=== PATIENT | female | born 1965 | race Caucasian/White ===

== ENCOUNTER 2016-04-28 10:00 | Inpatient (IN) | payer OTHER ==
--- NOTE | 2016-06-10 17:21 | HP ---
HISTORY AND PHYSICAL: DATE OF ADMISSION/SURGERY: 06/16/16 DATE OF OFFICE VISIT: 06/10/16 SURGEON: Jessica Rangel MD PROCEDURE: Removal of hardware and right total hip arthroplasty. CHIEF COMPLAINT: Right hip pain. HISTORY OF PRESENT ILLNESS: Ms. Gerardo is a 50-year-old female with complaints of right hip pain secondary to very severe degenerative changes. She has failed conservative management and elected to proceed with hardware removal and conversion to a right total hip arthroplasty. The surgery scheduled for . PAST MEDICAL HISTORY: Denies. PAST SURGICAL HISTORY: Cannulated screws of the right hip, tubal ligation. CURRENT MEDICATIONS: 1. Gabapentin. 2. Vitamin A. 3. Vitamin B. 4. Folic acid. 5. Prozac. 6. Hydromorphone. 7. OxyContin. ALLERGIES: No known drug allergies. FAMILY HISTORY: Lung and bladder cancer and heart disease. SOCIAL HISTORY: She is a 50-year-old female. She lives with her boyfriend. She is disabled. She smokes half a pack a day for the last 20 years. She denies use of alcohol or illicit drugs. REVIEW OF SYSTEMS: A complete 14-point review of systems was reviewed with the patient. All was negative or noncontributory. She denies any previous anesthesia problems. Denies any history of blood clot. PHYSICAL EXAMINATION GENERAL: She is well developed, well nourished, in no acute distress. VITAL SIGNS: She stands 5 feet 6 inches tall, weighs 108 pounds, her blood pressure 130/84, heart rate is 96. HEENT: She is normocephalic, atraumatic. NECK: Supple. No palpable lymph nodes. Trachea is midline. PULMONARY: The lungs are clear to auscultation bilaterally. No wheezes, rhonchi, or rales. CARDIO: Regular rate and rhythm. Strong S1, S2. No murmurs, gallops, or rubs. ABDOMEN: Soft, nontender, and nondistended. NEUROLOGICAL: Alert and oriented x3. Cranial nerves II through XII are intact. MUSCULOSKELETAL: Right lower extremity: The skin is intact. She has very limited range of motion of the right hip. 2+ distal pulses. Her lower extremity muscle group strengths are intact at 5/5, and she has intact sensation. She walks with a very antalgic-type gait. ASSESSMENT AND PLAN: Ms. Gerardo is a 50-year-old female with complaints of severe right hip pain. She has elected to proceed with hardware removal with conversion to a right total hip. The surgery is scheduled for 06/16/[address] Rangel. She is currently on a prescription for Dilaudid and OxyContin, which is prescribed by Dr. Park, so no pain medication was sent at today's visit. Coumadin and Colace were both sent to her pharmacy and she was told not to take these medications prior to surgery. She will follow up with Dr. Rangel 2 weeks after the surgery. ANETA GROVE [id number]/CPS #: [id number] MTDD
[2016-06-16] MEDS ORDERED: Famotidine IV* 10 MG/ML 2 ML (20 mg) IV ONE (06:00)
[2016-06-16] MEDS ORDERED: Gabapentin CAP(*) 300 MG PO ONE (06:00)
[2016-06-16] MEDS ORDERED: Buffered Lidocaine 1% SYR 3ML* 3 ML/SYR SYRINGE INTRADERM ONE (06:00)
[2016-06-16] MEDS ORDERED: Famotidine IV* 10 MG/ML 2 ML (20 mg) ONE (11:42)
[2016-06-16] MEDS ORDERED: ceFAZolin 2 GM PREMIX (*) 2 GM/50 ML BAG IVPB ONE (11:42)
[2016-06-16] MEDS ORDERED: Gabapentin CAP(*) 300 MG ONE ×2 (11:42→19:55)
[2016-06-16] MEDS ORDERED: Buffered Lidocaine 1% SYR 3ML* 3 ML/SYR SYRINGE ONE (11:43)
[2016-06-16] MEDS ORDERED: Ketorolac INJ* 30 MG/ML 1 ML VIAL ONE (12:19)
[2016-06-16] MEDS ORDERED: Propofol* 10 MG/ML 20 ML BTL IV PUSH ONE ×2 (12:19→16:41)
[2016-06-16] MEDS ORDERED: Dexamethasone IV* 4 MG/ML 1 ML (4 MG) ONE (12:19)
[2016-06-16] MEDS ORDERED: Lidocaine 2% MPF* 2 ML VIAL ONE (12:19)
[2016-06-16] MEDS ORDERED: Ondansetron INJ* 2 MG/ML VIAL ONE (12:19)
[2016-06-16] MEDS ORDERED: fentaNYL* 50 MCG/ML 2 ML VIAL (100 MCG VIAL) ONE ×3 (12:19→15:31)
[2016-06-16] MEDS ORDERED: DiMENhydriNATE IV* 50 MG/ML VIAL ONE (12:19)
[2016-06-16] MEDS ORDERED: Midazolam* 1 MG/ML 5 ML VIAL (5 MG) ONE (12:19)
[2016-06-16] MEDS ORDERED: Atracurium* 10 MG/ML 10 ML VIAL ONE (12:23)
[2016-06-16] MEDS ORDERED: Levalbuterol 0.63MG/3ML NEB INH ONE (13:23)
[2016-06-16] MEDS ORDERED: Levalbuterol 1.25MG/0.5ML NEB ONE (13:24)
[2016-06-16] MEDS ORDERED: Bupivacaine 0.5% SDV PF* 30 ML VIAL ONE (13:45)
[2016-06-16] MEDS ORDERED: KETAMINE HCL* 50 MG/ML 10 ML VIAL ONE (15:01)
[2016-06-16] MEDS ORDERED: diPHENhydraMINE IV* 50 MG/ML 1 ml VIAL (BENADRYL) IV PRN (15:24)
[2016-06-16] MEDS ORDERED: Bisacodyl SUPP* 10 MG SUPP PR PRN (15:24)
[2016-06-16] MEDS ORDERED: Ondansetron INJ* 2 MG/ML VIAL IV PRN (15:24)
[2016-06-16] MEDS ORDERED: Polyethylene Glycol 3350* 17 GM PACKET PO PRN (15:24)
[2016-06-16] MEDS ORDERED: Acetaminophen TAB* 325 MG PO PRN (15:24)
[2016-06-16] MEDS ORDERED: Morphine INJ* 2 MG/ML 1 ML CARPUJECT IV PRN (15:24)
[2016-06-16] MEDS ORDERED: Magnesium Hydroxide LIQ* 30 ML UDC PO PRN (15:24)
[2016-06-16] MEDS ORDERED: Ondansetron TAB* 4 MG PO PRN (15:24)
[2016-06-16] MEDS ORDERED: Levalbuterol 0.63MG/3ML NEB INH PRN (15:53)
[2016-06-16] MEDS ORDERED: oxyCODONE/Acetamin 5/325 MG* TAB PO PRN (15:53)
[2016-06-16] MEDS ORDERED: DiMENhydriNATE IV* 50 MG/ML VIAL IV PUSH PRN (15:53)
[2016-06-16] MEDS ORDERED: HYDROmorphone INJ* 1 MG/ML CARPUJECT SYRINGE ONE ×2 (17:30→18:07)
[2016-06-16] MEDS ORDERED: oxyCODONE/Acetamin 5/325 MG* TAB ONE (18:07)
[2016-06-16] MEDS: HYDROmorphone INJ* 1 MG/ML CARPUJECT SYRINGE IV PRN ×5 (18:10→18:44)
[2016-06-16] MEDS: oxyCODONE/Acetamin 5/325 MG* TAB PO PRN (18:14)
--- NOTE | 2016-06-16 18:54 | RAD ---
INDICATION: Right total hip arthroplasty revision COMPARISON: Preoperative x-ray dated June 10, 2016 TECHNIQUE: 3 views of the right hip were obtained. FINDINGS: There is been interval placement of a right total hip prosthesis including a stabilizing metallic hardware along the lateral aspect of the proximal right femur and cerclage wires. The metallic hardware appears anatomically aligned in the AP and lateral views. Remaining visualized bones are intact. IMPRESSION: Anatomic alignment of right hip prosthesis as described above.
--- NOTE | 2016-06-16 18:57 | RAD ---
INDICATION: Intraoperative x-ray acquired during right total hip arthroplasty revision TECHNIQUE: An intraoperative AP view of the pelvis was obtained. FINDINGS: The visualized portions of the right hip prosthesis include the acetabular cup, the femoral shaft, a metal device along the lateral aspect of the proximal femur and cerclage wires. No prostatic femoral head is observed in this image.. IMPRESSION: Intraoperative x-ray as described above.
--- NOTE | 2016-06-16 19:43 | RAD ---
INDICATION: Right hip replacement TECHNIQUE: Single AP intraoperative view of the right hip acquired. FINDINGS: A single AP view acquired during right hip arthroplasty revision includes the acetabular cup. There is no femoral component aside from a lateral metallic device and one cerclage wire. IMPRESSION: Intraoperative x-ray as above.
[2016-06-16] MEDS ORDERED: Morphine INJ* 2 MG/ML 1 ML CARPUJECT ONE (19:55)
[2016-06-16] MEDS: Gabapentin CAP(*) 300 MG PO SCH (19:57)
[2016-06-16] MEDS ORDERED: Warfarin TAB(*) 6 MG PO ONE (21:00)
[2016-06-16] MEDS: Docusate CAP* 100 MG PO SCH (21:29)
[2016-06-16] MEDS: ceFAZolin 1 GM in Dextrose (*) 1 GM/50 ML BAG IVPB SCH (21:30)
--- NOTE | 2016-06-16 22:28 | CONS ---
[facility] MEDICINE CONSULTATION REPORT: DATE OF CONSULT: 06/16/16 ATTENDING PHYSICIAN: Dr. Jessica Rangel. CONSULTING PHYSICIAN: Dr. Sandeep Byrne (dictation provided by Bev Scott NP ) REASON FOR CONSULT: Medical comanagement in the patient admitted for right total hip arthroplasty. HISTORY OF PRESENT ILLNESS: Ms. Gerardo is a 50-year-old female with ongoing pain due to severe degenerative changes in her right hip who failed conservative management and has elected for a right total hip arthroplasty. Please see the dictated H and P from Dr. Rangel for further details. The patient has no further known medical history. PAST MEDICAL HISTORY: 1. COPD. 2. History of polyneuropathy. 3. Hx alcohol abuse. 4. Hx tobacco abuse. 5. Chronic electrolyte abnormalities. PAST SURGICAL HISTORY: Cannulated screws of the right hip and a tubal ligation. CURRENT MEDICATIONS: 1. Hydromorphone 8 mg p.o. q.4 hours p.r.n. 2. Vitamin B 108 mg p.o. daily. 3. Multivitamin 1 tab daily. 4. Oxycodone SR 20 mg p.o. q.12 hours. 5. Albuterol sulfate 2 puffs inhaled q.4 hours p.r.n. 6. Folic acid 1 mg daily. 7. Gabapentin 300 mg p.o. t.i.d. 8. Omeprazole 40 mg p.o. q.a.m. ALLERGIES: No known drug allergies. FAMILY HISTORY: Reviewed and noncontributory. SOCIAL HISTORY: No report of alcohol or drug use. The patient states that she is an ongoing smoker, but she quit today. REVIEW OF SYSTEMS: A 14-point review of systems was completed with Ms. Gerardo and all those mentioned above were negative. PHYSICAL EXAMINATION: Vital Signs: Temperature 98.2, heart rate 84, respiratory rate 14, O2 saturation 99% on 3 L nasal cannula, blood pressure 171/ 82. General: Ms. Gerardo is lying on the bed. She is in no acute distress, but she ___. Neuro: She is alert and oriented x3. She moves all extremities equally. There is no facial asymmetry or focal weakness. Extraocular movements are intact. Heart: S1, S2. No murmur, rub, gallop and regular. Lungs: Clear to auscultation bilaterally with no accessory muscle use and good aeration. Abdomen: Soft and nontender with bowel sounds positive x4. Extremities: No cyanosis or edema. Skin: Intact. DIAGNOSTIC STUDIES/LAB DATA: On 06/10/16, WBC 7.0, hemoglobin 14.8, hematocrit 45, and platelet count 257. Sodium 134, potassium 4.4, chloride 98, serum bicarbonate 34, BUN 11, creatinine 0.57, glucose 83, hemoglobin A1c 5.0. ASSESSMENT: Ms. Gerardo is a 50-year-old female with no other significant past medical history who presents to the hospital today for right total hip arthroplasty with Dr. Jessica Rangel. Our recommendations are as follows: 1. Right total hip arthroplasty, postop day #0. Management will be per orthopedic services. The patient will have PT and OT. She will have pain management with a bowel regimen and she will have H and H monitored. I do note that the patient is on significant amount of chronic daily narcotics. Hopefully , the surgery will decrease the need for that, but I do anticipate to her to have a high tolerance and need for stronger doses of narcotics than for typical patient. I have adjusted the region somewhat tonight. We will monitor her for good pain control. 2. COPD: Patient reports stopping smoking as of today. I strongly encouraged her in her efforts. Plan to also encourage IS and mobility. 3. Hx alcohol abuse: Patient denies drinking currently. Monitor for signs of withdrawal and treat as needed. 4. DVT prophylaxis with warfarin and Lovenox per Ortho. 5. Code status. Full code. 6. Disposition. Per Ortho. TIME SPENT: Approximately 30 minutes were spent in the consultation of this patient. More than half that time was spent with her at the bedside, reviewing the events leading up to this hospitalization, performing the physical examination, and reviewing the plan of care. BEV SCOTT, NESTOR [id number]/CPS #: [id number] ANGLE
[2016-06-17] MEDS: Morphine INJ* 2 MG/ML 1 ML CARPUJECT IV PRN ×3 (00:15→07:30)
[2016-06-17] MEDS: oxyCODONE/Acetamin 5/325 MG* TAB PO PRN ×4 (02:59→17:34)
--- NOTE | 2016-06-17 03:34 | OP ---
DATE OF OPERATION: 06/16/16 - ROOM #340 DATE OF : 67 SURGEON: Jessica Rangel MD INFORMATION DIRECTOR: ANETA Lau ANESTHESIOLOGIST: Dr. Kang. ANESTHESIA: General. 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 OPERATIVE PROCEDURE: Conversion of prior hip ORIF to a right total hip arthroplasty, removal of cannulated screws. COMPLICATIONS: None. ESTIMATED BLOOD LOSS: 300 cc. SPECIMEN: Femoral head and acetabulum reaming, sent to pathology. Multiple culture swabs intraoperatively. HARDWARE USED: This was uncemented Wilmer total hip hardware. For the cup, a size 48D Trident Hemispherical Acetabular Shell with 130 mm cancellous bone screw. A Trident X3 32D 10-degree polyethylene insert was used. For the femoral stem, a size 2.5 Accolade TMZF with a 127-degree neck and Biolox Delta Ceramic V40 femoral head, 32, +0. A [employer] trochanteric practice assistant plate was also used in size medium, length 150 mm. Four [employer] cables were used for this trochanteric practice assistant plate. These were 2.0 cables. BRIEF HISTORY/INDICATIONS: Ms. Gerardo is a 50-year-old female who had a fall with femoral neck fracture in 2007. This was treated by Dr. Aggarwal with cannulated screw fixation. Over the next 8 years, she went on to have hardware failure and protrusion of the screws. The patient presented to my clinic several months ago with severe pain and inability to ambulate. Radiographs showed protrusion of the screws into the femoral head with severe posttraumatic osteoarthritis of the right hip joint. She was medically optimized for surgery and very much wished to proceed with conversion of the prior hip ORIF to a right total hip arthroplasty. Informed consent was obtained from the patient. She understood the risks of the procedure included but were not limited to bleeding, infection, damage to nearby structures, continued pain, need for surgery, nerve palsy, leg length discrepancy, dislocation, hardware failure or loosening, intraoperative fractures, stroke, heart attack, blood clot, and . She wished to proceed. INTRAOPERATIVE FINDINGS: Intraoperatively, the patient's femoral head was completely deformed and collapsed. She had protruded cannulated screws. These screws are loosened and backed up. She was noted to have osteopenia throughout the case. She did have severe end-stage arthritis of the acetabulum as well. DESCRIPTION OF PROCEDURE: Ms. Gerardo was identified in the preanesthesia unit. Her right lower extremity was marked as the correct operative site. Informed consent was signed and placed in the chart. The patient was taken to the operating room and placed under general anesthesia. A Finch catheter was placed. She was placed in the left lateral decubitus position on the PEG board. All bony prominences were well padded. Right lower extremity was prepped and draped in the usual sterile fashion. Preop time-out was made to correctly identify the patient side and site. Appropriate perioperative antibiotics were given within 1 hour of incision. A 15 cm posterior hip incision was made with a 10 blade and carried down to the lateral fascial layer. Electrocautery was used to dissect through subcutaneous fat. Lateral fascial layer was then incised in the line with the skin incision and a Charnley retractor was placed. Piriformis and conjoined tendons were identified and elevated off posterolateral femur using electrocautery and tagged with two #5 Ethibonds. Next, the electrocautery was used to make a standard posterolateral capsular flap and this was also tagged with two #5 Ethibonds. Standard protocol aerobic and anaerobic cultures were obtained of the joint fluid. Joint fluid was cleared and did not appear to be infected. The cannulated screws were visible through the femoral head. These screws were loosened and backed up. They were visible along the posterolateral proximal femur. The hip was carefully dislocated. Cannulated screws were carefully removed. There were 3 washers as well which were carefully removed. Oscillating saw was used to make the appropriate femoral neck cut. Femoral head was collapsed and deformed. This was sent to pathology. A curette was used to remove any fibrous debris from the screw tracks. Around the 3 cannulated screw holes, there was no mobile bone or obvious fracture of the greater trochanter. The femur was carefully retracted anteriorly. After appropriate placement of retractor, the acetabulum was easily visualized. There was superolateral wear from the screws. A long-handle knife was used to remove any remaining labrum from the acetabular rim. Electrocautery was used to remove soft tissue from the cotyloid notch. The acetabulum was sequentially reamed up to a size 47. Good bleeding bone bed was obtained. Osteopenia was noted. A size 48 Trident Multi-Hole Shell was chosen. This was impacted into the acetabulum without difficulty. A size 30 screw was placed in the superoposterior quadrant for extra stability. A 32D 10-degree Trident X3 liner was chosen as the polyethylene insert. This was impacted into the acetabulum and noted to be stable. The stability of the line was checked and rechecked. Next, attention was turned to preparation of the femur. A canal finder was used to enter the proximal femur. The proximal intramedullary femoral bone was noted to be sclerotic due to the prior cannulated screw holes. I felt that the greater troch was at high risk of fracture during the broaching of the canal. Therefore, the decision was made place a [employer] trochanteric practice assistant plate. A medium length 150 was chosen. This was applied to the lateral greater trochanter and lateral femur. Four 2-0 cables were used to secure the trochanteric practice assistant plate to the greater trochanter and lateral femur. A stable construct was obtained. C-arm AP and lateral views were used to ensure proper placement of the plate and cables. Next, attention was turned to preparation of the proximal femur. The canal was sequentially broached up to a size 2.5. A 127-degree neck trial was chosen. A 32, +0 femoral head trial was chosen. The hip was reduced and taken through a range of motion. Hip was noted to be stable in all positions. Anterior capsule was tight and electrocautery was used to conservatively release this. The hip was carefully was dislocated. All trials were carefully removed. Final implant was an Accolade TMZF size 2.5 with 127-degree neck. A 32, +0 Biolox Delta femoral head was chosen as well. Femoral stem was impacted into the femoral canal without any difficulty. It was stable with appropriate anteversion. There were no visible periprosthetic fractures. Prior acetabular reamings were used to bone graft the cannulated screw holes. The Biolox Delta femoral head was impacted onto the femoral neck without difficulty. Hip was reduced and taken through a range of motion. The hip was stable in all positions. There was good soft tissue tension. Hip was copiously irrigated at this point. Previously tagged capsule and tendons were reapproximated to the postero-lateral femur through 2 trochanteric drill holes. The hip was copiously irrigated with sterile saline. The lateral fascia and proximal IT band was reapproximated using #5 Ethibond. Next, the lateral fascia layer was reapproximated using interrupted #1 Vicryls. The rest of the incision was closed in a layered fashion using 0 and 2-0 Vicryls. Skin was closed using running 3-0 Monocryl and Dermabond. Sterile Adaptic, 4x4s, and paper tape were used to cover the incision. The patient's anesthesia was reversed without difficulty. She was taken to the PACU in stable condition. Intended weightbearing will be weightbearing as tolerated. Intended DVT prophylaxis will be Coumadin with a Lovenox bridge. [id number]/[facility] #: [id number] ANGLE
[2016-06-17] MEDS: ceFAZolin 1 GM in Dextrose (*) 1 GM/50 ML BAG IVPB SCH ×2 (05:29→13:15)
[2016-06-17 06:20] LABS: Hematocrit 33 % (35-47)
[2016-06-17 06:45] LABS: BUN/Creatinine Ratio 20.4 (8-20); Calcium 8.1 mg/dL (8.6-10.3); EGFR African American 172.6 (>60); EGFR Non-African American 134.2 (>60)
[2016-06-17] MEDS: Omeprazole CAP* 20 MG PO SCH (07:29)
[2016-06-17] MEDS: Gabapentin CAP(*) 300 MG PO SCH ×3 (07:29→20:05)
[2016-06-17] MEDS: Docusate CAP* 100 MG PO SCH ×2 (07:30→20:05)
--- NOTE | 2016-06-17 07:37 | PN ---
Progress Note - Progress Note SOAP: Subjective: Pt. reports severe pain. Objective: RLE - dressing c/d/i, thigh soft. distally +df/pf, 2+ dp pulse. baseline sens lt. Vital Signs: Temp Pulse Resp BP Pulse Ox 98.1 F 87 18 108/59 94 06/17/16 03:25 06/17/16 03:25 06/17/16 07:30 06/17/16 03:25 06/17/16 03:25 Laboratory Results - last 24 hr 06/16/16 06/17/16 06/17/16 12:21 06:03 06:07 Hgb 11.0 L Hct 33 L INR (Anticoag Therapy) Sodium 137 Potassium 4.0 Chloride 103 Carbon Dioxide 28 Anion Gap 6 BUN 10 Creatinine 0.49 L Est GFR ( Amer) 172.6 Est GFR (Non-Af Amer) 134.2 BUN/Creatinine Ratio 20.4 H Glucose 161 H Calcium 8.1 L Blood Type A Positive Antibody Screen Negative 06/17/16 06:07 Hgb Hct INR (Anticoag Therapy) 1.02 Sodium Potassium Chloride Carbon Dioxide Anion Gap BUN Creatinine Est GFR ( Amer) Est GFR (Non-Af Amer) BUN/Creatinine Ratio Glucose Calcium Blood Type Antibody Screen Assessment: 50 yo F pod 1 s/p conversion to RTHA with trochanteric radiological defense officer plate. Plan: PT/OT - wbat with strict post. hip precautions - pt. had signifant shortened leg with flexion contracture preop - may not be able to fully extend at hip. remove porter may restart oxycontin oobtc with meals heel booties will discuss COPD and PMH with Bev Scott.
[2016-06-17] MEDS ORDERED: Pneumococcal *Vac Polyvalent 0.5 ML VIAL IM ONE (09:00)
[2016-06-17] MEDS ORDERED: Influenza VAC *QUAD* 2016-17* 0.5 ML SYRINGE IM ONE (09:00)
[2016-06-17] MEDS: oxyCODONE SR TAB(*) 10 MG TAB.SR PO SCH ×2 (09:01→20:06)
[2016-06-17] MEDS: Folic Acid TAB* 1 MG PO SCH (09:01)
[2016-06-17] MEDS: Albuterol HFA INHALER* 8 gm MDI INH PRN (12:55)
[2016-06-17] MEDS: oxyCODONE TAB* 5 MG TAB PO PRN ×2 (14:36→23:02)
[2016-06-17] MEDS ORDERED: Enoxaparin(*) 30 MG/0.3 ML SYR SUBCUT SCH (16:00)
[2016-06-17] MEDS ORDERED: Warfarin TAB(*) 4 MG PO ONE (17:00)
--- NOTE | 2016-06-17 17:34 | PN ---
Subjective Date of Service: 06/17/16 Interval History: This is a 50 yo female with a h/o mild COPD who is POD #1 s/p R CHALO by Dr Rangel. Patient has had some difficulty with pain management. Denies CP or SOB. Denies abdominal pain, n/v. Objective Active Medications: Acetaminophen (Tylenol Tab*) 650 mg PO Q4H PRN PRN Reason: PAIN OR TEMPERATURE Albuterol (Ventolin Hfa Inhaler*) 2 puff INH Q4HR PRN PRN Reason: SHORTNESS OF BREATH Last Admin: 06/17/16 12:55 Dose: 2 puff Bisacodyl (Dulcolax Supp*) 10 mg MD DAILY PRN PRN Reason: constipation Diphenhydramine HCl (Benadryl Iv*) 12.5 mg IV Q6H PRN PRN Reason: PRURITIS Docusate Sodium (Colace Cap*) 100 mg PO BID [facility] Last Admin: 06/17/16 07:30 Dose: 100 mg Enoxaparin Sodium (Lovenox(*)) 30 mg SUBCUT Q24H [facility] Last Admin: 06/17/16 16:07 Dose: 30 mg Folic Acid (Folvite Tab*) 1 mg PO 1000 [facility] Last Admin: 06/17/16 09:01 Dose: 1 mg Gabapentin (Neurontin Cap(*)) 300 mg PO TID [facility] Last Admin: 06/17/16 13:10 Dose: 300 mg Lactated Ringer's (Lactated Ringers 1000 Ml Bag*) 1,000 mls @ 100 mls/hr IV PER RATE [facility] Last Admin: 06/17/16 07:35 Dose: 100 mls/hr Lactulose (Lactulose*) 30 ml PO Q6H PRN PRN Reason: constipation Magnesium Hydroxide (Milk Of Magnesia Liq*) 30 ml PO Q6H PRN PRN Reason: constipation Morphine Sulfate (Morphine Inj (Syringe)*) 4 mg IV Q2H PRN PRN Reason: PAIN Last Admin: 06/17/16 07:30 Dose: 4 mg Omeprazole (Prilosec Cap*) 40 mg PO QAM [facility] Last Admin: 06/17/16 07:29 Dose: 40 mg Ondansetron HCl (Zofran Inj*) 4 mg IV Q6H PRN PRN Reason: nausea Ondansetron HCl (Zofran Tab*) 4 mg PO Q6H PRN PRN Reason: NAUSEA Oxycodone HCl (Roxycodone Tab*) 10 mg PO Q4H PRN PRN Reason: SEVERE PAIN Last Admin: 06/17/16 14:36 Dose: 10 mg Oxycodone HCl (Oxycontin(*)) 10 mg PO BID [facility] Last Admin: 06/17/16 09:01 Dose: 10 mg Oxycodone/Acetaminophen (Percocet 5/325 Tab*) 1 tab PO Q3H PRN PRN Reason: PAIN - MODERATE Oxycodone/Acetaminophen (Percocet 5/325 Tab*) 2 tab PO Q3H PRN PRN Reason: PAIN - MODERATE Last Admin: 06/17/16 10:42 Dose: 2 tab Pharmacy Profile Note (Coumadin Daily Reminder*) 1 note FOLLOW UP 1700 [facility] Polyethylene Glycol/Electrolytes (Miralax*) 17 gm PO DAILY PRN PRN Reason: Constipation Vital Signs: Temp Pulse Resp BP Pulse Ox 98.2 F 83 17 95/60 91 06/17/16 16:24 06/17/16 16:24 06/17/16 16:34 06/17/16 16:24 06/17/16 16:24 Oxygen Devices in Use Now: None Appearance: Chronically ill appearing female who appears older than stated age sitting at the side of her bed in NAD Neck: NL Appearance and Movements; NL JVP Respiratory: Symmetrical Chest Expansion and Respiratory Effort, - - few inspiratory wheezes appreciated, no crackles or rhonchi Cardiovascular: NL Sounds; No Murmurs; No JVD, RRR Abdominal: NL Sounds; No Tenderness; No Distention Extremities: No Edema Skin: No Rash or Ulcers Neurological: Alert and Oriented x 3 Result Diagrams: 06/17/16 06:07 06/17/16 06:03 Microbiology and Other Data: Microbiology 06/16/16 15:24 Anaerobic Culture - Preliminary Wound - Hip Right No Growth Day 1 Skin and Soft Tissue MRSA/MSSA (PCR - Final Mrsa Negative S.aureus Negative Gram Stain - Final Wound Culture - Preliminary No Growth Day 1 Assess/Plan/Problems-Billing Assessment: This a 50 yo female with mild COPD and chronic pain who is POD #1 s/p R CHALO by Dr Rangel. Hospitalists are co-managing. - Patient Problems (1) History of total right hip arthroplasty Comment: POD #1 Management per ortho DVT prophylaxis and discharge planning per ortho (2) COPD (chronic obstructive pulmonary disease) Comment: Mild wheeze on exam, but no hypoxia or complaints of dyspnea Cont prn albuterol and incentive spirometer (3) Chronic pain Comment: Currently receiving prn oxycodone, would like benefit from restarting her SR Oxycontin for improved pain control (4) Polyneuropathy Comment: History of possible GB Perhaps related to nutrition (5) Tobacco abuse Comment: Patient is motivated to quit Denies nicotine cravings Status and Disposition: Disposition per ortho. No acute medical concerns
[2016-06-18] MEDS: oxyCODONE/Acetamin 5/325 MG* TAB PO PRN ×4 (02:56→23:31)
[2016-06-18] MEDS: Morphine INJ* 2 MG/ML 1 ML CARPUJECT IV PRN (05:38)
[2016-06-18] MEDS: Albuterol HFA INHALER* 8 gm MDI INH PRN ×2 (05:46→10:09)
[2016-06-18 06:34] LABS: Hematocrit 29 % (35-47); Hemoglobin 9.8 g/dl (12.0-16.0)
[2016-06-18] MEDS: Gabapentin CAP(*) 300 MG PO SCH ×3 (07:47→21:06)
[2016-06-18] MEDS: Docusate CAP* 100 MG PO SCH ×2 (07:47→21:07)
[2016-06-18] MEDS: oxyCODONE SR TAB(*) 10 MG TAB.SR PO SCH ×2 (07:48→08:57)
[2016-06-18] MEDS: Omeprazole CAP* 20 MG PO SCH (07:48)
[2016-06-18] MEDS: oxyCODONE SR TAB(*) 20 MG TAB.SR PO SCH ×2 (08:59→21:07)
[2016-06-18] MEDS ORDERED: oxyCODONE SR TAB(*) 10 MG TAB.SR PO ONE (09:00)
[2016-06-18] MEDS: Folic Acid TAB* 1 MG PO SCH (10:08)
[2016-06-18] MEDS ORDERED: Spiriva Inhaler DEVICE* 1 EACH DEVICE INH ONE (14:00)
--- NOTE | 2016-06-18 14:01 | PN ---
Progress Note - Progress Note SOAP: Subjective: Pt. is c/o uncontrolled pain and some burning in R foot. Objective: RLE - dressing changed, inc c/d/i. distally + df/pf, sens baseline, 2+dp pulse. Vital Signs: Temp Pulse Resp BP Pulse Ox 98.8 F 95 18 90/51 92 06/18/16 12:02 06/18/16 12:02 06/18/16 13:49 06/18/16 12:02 06/18/16 12:02 Laboratory Results - last 24 hr 06/18/16 06/18/16 05:53 05:53 Hgb 9.8 L Hct 29 L INR (Anticoag Therapy) 2.00 H Assessment: 50 yo F pod 2 s/p conversion prior R hip orif to RTHA Plan: oxycontin increased to 20 mg bid oobtc with meals wbat rle - pt/ot post hip precautions plan d/c to home tomorrow
[2016-06-18] MEDS: Tiotropium CAP.INH* CAP.INH/18 MCG (USE ORDER SET !) INH SCH (14:13)
[2016-06-18] MEDS ORDERED: Warfarin TAB(*) 2 MG PO ONE (17:00)
--- NOTE | 2016-06-18 19:01 | PN ---
Subjective Date of Service: 06/18/16 Interval History: Patient is still struggling with pain control, but seems improved. She was noted to be hypoxic with ambulation today. Patient denies significant dyspnea despite this Objective Active Medications: Acetaminophen (Tylenol Tab*) 650 mg PO Q4H PRN PRN Reason: PAIN OR TEMPERATURE Albuterol (Ventolin Hfa Inhaler*) 2 puff INH Q4HR PRN PRN Reason: SHORTNESS OF BREATH Last Admin: 06/18/16 10:09 Dose: 2 puff Bisacodyl (Dulcolax Supp*) 10 mg [place] DAILY PRN PRN Reason: constipation Diphenhydramine HCl (Benadryl Iv*) 12.5 mg IV Q6H PRN PRN Reason: PRURITIS Docusate Sodium (Colace Cap*) 100 mg PO BID [facility] Last Admin: 06/18/16 07:47 Dose: 100 mg Folic Acid (Folvite Tab*) 1 mg PO 1000 [facility] Last Admin: 06/18/16 10:08 Dose: 1 mg Gabapentin (Neurontin Cap(*)) 300 mg PO TID [facility] Last Admin: 06/18/16 13:49 Dose: 300 mg Lactated Ringer's (Lactated Ringers 1000 Ml Bag*) 1,000 mls @ 200 mls/hr IV PER RATE [facility] Stop: 06/18/16 18:59 Last Admin: 06/18/16 13:56 Dose: 200 mls/hr Lactulose (Lactulose*) 30 ml PO Q6H PRN PRN Reason: constipation Magnesium Hydroxide (Milk Of Magnesia Liq*) 30 ml PO Q6H PRN PRN Reason: constipation Last Admin: 06/17/16 20:11 Dose: 30 ml Mometasone Furoate/Formoterol Fumar (Dulera 200/5 Mdi*) 2 puff INH BID [facility] Morphine Sulfate (Morphine Inj (Syringe)*) 4 mg IV Q2H PRN PRN Reason: PAIN Last Admin: 06/18/16 05:38 Dose: 4 mg Omeprazole (Prilosec Cap*) 40 mg PO QAM [facility] Last Admin: 06/18/16 07:48 Dose: 40 mg Ondansetron HCl (Zofran Inj*) 4 mg IV Q6H PRN PRN Reason: nausea Ondansetron HCl (Zofran Tab*) 4 mg PO Q6H PRN PRN Reason: NAUSEA Oxycodone HCl (Roxycodone Tab*) 10 mg PO Q4H PRN PRN Reason: SEVERE PAIN Last Admin: 06/17/16 23:02 Dose: 10 mg Oxycodone HCl (Oxycontin(*)) 20 mg PO BID [facility] Last Admin: 06/18/16 08:59 Dose: Not Given Oxycodone/Acetaminophen (Percocet 5/325 Tab*) 1 tab PO Q3H PRN PRN Reason: PAIN - MODERATE Last Admin: 06/18/16 13:49 Dose: 1 tab Oxycodone/Acetaminophen (Percocet 5/325 Tab*) 2 tab PO Q3H PRN PRN Reason: PAIN - MODERATE Last Admin: 06/18/16 02:56 Dose: 2 tab Pharmacy Profile Note (Coumadin Daily Reminder*) 1 note FOLLOW UP 1700 [facility] Last Admin: 06/18/16 16:37 Dose: 1 note Polyethylene Glycol/Electrolytes (Miralax*) 17 gm PO DAILY PRN PRN Reason: Constipation Tiotropium [place] (Spiriva Cap.Inh*) 1 cap INH DAILY [facility] Last Admin: 06/18/16 14:13 Dose: 1 inh Vital Signs: Temp Pulse Resp BP Pulse Ox 100.1 F 100 18 92/51 95 06/18/16 15:45 06/18/16 15:45 06/18/16 15:49 06/18/16 15:45 06/18/16 16:00 Oxygen Devices in Use Now: None Appearance: Chronically ill appearing, in NAD Respiratory: Symmetrical Chest Expansion and Respiratory Effort, - - diffuse rhonchi and wheezing Cardiovascular: NL Sounds; No Murmurs; No JVD, RRR Abdominal: NL Sounds; No Tenderness; No Distention Extremities: No Edema Skin: No Rash or Ulcers Neurological: Alert and Oriented x 3 Result Diagrams: 06/18/16 05:53 06/17/16 06:03 Microbiology and Other Data: Microbiology 06/16/16 15:24 Anaerobic Culture - Preliminary Wound - Hip Right No Growth Day 1 Skin and Soft Tissue MRSA/MSSA (PCR - Final Mrsa Negative S.aureus Negative Gram Stain - Final Wound Culture - Preliminary No Growth Day 1 Assess/Plan/Problems-Billing Assessment: This a 50 yo female with mild COPD and chronic pain who is POD #2 s/p R CHALO by Dr Rangel. Hospitalists are co-managing. - Patient Problems (1) History of total right hip arthroplasty Comment: POD #2 Management per ortho DVT prophylaxis and discharge planning per ortho (2) COPD (chronic obstructive pulmonary disease) Comment: Worsening wheeze, rhonchi and hypoxia Started Dulera and Spiriva, would recommend continuing these at discharge (3) Chronic pain Comment: SR Oxycontin resumed with some improved pain relief (4) Polyneuropathy Comment: History of possible GB Perhaps related to nutrition (5) Tobacco abuse Comment: Patient is motivated to quit Denies nicotine cravings Status and Disposition: Disposition per ortho. No acute medical concerns, but would recommend that she go home with new inhaled medications
[2016-06-18] MEDS: Mometasone/Formoter 200/5 MDI INH SCH (21:25)
[2016-06-19] MEDS: oxyCODONE/Acetamin 5/325 MG* TAB PO PRN ×3 (04:49→11:27)
[2016-06-19 06:54] LABS: Hematocrit 27 % (35-47)
[2016-06-19] MEDS: Mometasone/Formoter 200/5 MDI INH SCH (07:26)
[2016-06-19] MEDS: Tiotropium CAP.INH* CAP.INH/18 MCG (USE ORDER SET !) INH SCH (07:27)
[2016-06-19] MEDS: oxyCODONE SR TAB(*) 20 MG TAB.SR PO SCH (07:28)
[2016-06-19] MEDS: Omeprazole CAP* 20 MG PO SCH (07:28)
[2016-06-19] MEDS: Docusate CAP* 100 MG PO SCH (07:30)
[2016-06-19] MEDS: Gabapentin CAP(*) 300 MG PO SCH (07:30)
[2016-06-19 08:29] VITALS: BP 111/62
--- NOTE | 2016-06-19 08:41 | PN ---
Subjective Date of Service: 06/19/16 Interval History: Patient seen and examined at bedside. Pt states that her pain is controlled, she states that she is stiff when she first gets up, but this improves over the course of the day. Denies fever, chills, shortness of breath, chest discomfort, N/V/D. Family History: Unchanged from Admission Social History: Unchanged from Admission Past Medical History: Unchanged from Admission Objective Active Medications: Acetaminophen (Tylenol Tab*) 650 mg PO Q4H PRN Reason: PAIN OR TEMPERATURE Albuterol (Ventolin Hfa Inhaler*) 2 puff INH Q4HR PRN Reason: SHORTNESS OF BREATH Bisacodyl (Dulcolax Supp*) 10 mg [place] DAILY PRN Reason: constipation Diphenhydramine HCl (Benadryl Iv*) 12.5 mg IV Q6H PRN Reason: PRURITIS Docusate Sodium (Colace Cap*) 100 mg PO BID [facility] Folic Acid (Folvite Tab*) 1 mg PO 1000 [facility] Gabapentin (Neurontin Cap(*)) 300 mg PO TID [facility] Lactulose (Lactulose*) 30 ml PO Q6H PRN Reason: constipation Magnesium Hydroxide (Milk Of Magnesia Liq*) 30 ml PO Q6H PRN Reason: constipation Mometasone Furoate/Formoterol Fumar (Dulera 200/5 Mdi*) 2 puff INH BID [facility] Morphine Sulfate (Morphine Inj (Syringe)*) 4 mg IV Q2H PRN Reason: PAIN Omeprazole (Prilosec Cap*) 40 mg PO QAM [facility] Ondansetron HCl (Zofran Inj*) 4 mg IV Q6H PRN Reason: nausea Ondansetron HCl (Zofran Tab*) 4 mg PO Q6H PRN Reason: NAUSEA Oxycodone HCl (Roxycodone Tab*) 10 mg PO Q4H PRN Reason: SEVERE PAIN Oxycodone HCl (Oxycontin(*)) 20 mg PO BID [facility] Oxycodone/Acetaminophen (Percocet 5/325 Tab*) 1 tab PO Q3H PRN Reason: PAIN - MODERATE Oxycodone/Acetaminophen (Percocet 5/325 Tab*) 2 tab PO Q3H PRN Reason: PAIN - MODERATE Pharmacy Profile Note (Coumadin Daily Reminder*) 1 note FOLLOW UP 1700 [facility] Polyethylene Glycol/Electrolytes (Miralax*) 17 gm PO DAILY PRN Reason: Constipation Tiotropium [place] (Spiriva Cap.Inh*) 1 cap INH DAILY [facility] Vital Signs 06/18/16 06/18/16 06/18/16 08:45 08:59 09:47 Temperature Pulse Rate Respiratory 18 18 Rate Blood Pressure (mmHg) O2 Sat by Pulse 95 Oximetry 06/18/16 06/18/16 06/18/16 09:48 10:59 12:02 Temperature 98.8 F Pulse Rate 95 Respiratory 18 18 18 Rate Blood Pressure 90/51 (mmHg) O2 Sat by Pulse 92 Oximetry 06/18/16 06/18/16 06/18/16 13:49 15:45 15:49 Temperature 100.1 F Pulse Rate 100 Respiratory 18 16 18 Rate Blood Pressure 92/51 (mmHg) O2 Sat by Pulse 95 Oximetry 06/18/16 06/18/16 06/18/16 16:00 19:14 19:17 Temperature 98.6 F Pulse Rate 96 Respiratory 16 16 Rate Blood Pressure 104/57 (mmHg) O2 Sat by Pulse 95 98 Oximetry 06/18/16 06/18/16 06/18/16 21:06 21:07 21:29 Temperature Pulse Rate Respiratory 16 16 Rate Blood Pressure (mmHg) O2 Sat by Pulse 95 Oximetry 06/18/16 06/18/16 06/18/16 23:07 23:26 23:31 Temperature 98.1 F Pulse Rate 98 Respiratory 16 16 16 Rate Blood Pressure 110/59 (mmHg) O2 Sat by Pulse 93 Oximetry 06/18/16 06/19/16 06/19/16 23:33 01:31 03:38 Temperature 98.3 F Pulse Rate 92 Respiratory 16 16 18 Rate Blood Pressure 112/65 (mmHg) O2 Sat by Pulse 98 Oximetry 06/19/16 06/19/16 06/19/16 04:49 07:13 07:28 Temperature 98.9 F Pulse Rate 98 Respiratory 16 20 18 Rate Blood Pressure 85/60 (mmHg) O2 Sat by Pulse 92 Oximetry 06/19/16 06/19/16 06/19/16 07:30 07:31 08:27 Temperature Pulse Rate 107 Respiratory 18 18 Rate Blood Pressure 111/62 (mmHg) O2 Sat by Pulse Oximetry Oxygen Devices in Use Now: None Appearance: NAD, sitting up on the side of the bed. Eyes: No Scleral Icterus, PERRLA Ears/Nose/Mouth/Throat: NL Teeth, Lips, Gums, Mucous Membranes Moist Neck: NL Appearance and Movements; NL JVP, Trachea Midline Respiratory: Symmetrical Chest Expansion and Respiratory Effort, - - Scattered rhonchi and minimal insp and exp wheeze. Cardiovascular: NL Sounds; No Murmurs; No JVD, RRR Abdominal: NL Sounds; No Tenderness; No Distention Extremities: No Edema Skin: No Rash or Ulcers, - - Dressing to right hip clean, dry and intact. Neurological: Alert and Oriented x 3, NL Muscle Strength and Tone Lines/Tubes/Other Access: Clean, Dry and Intact Peripheral IV - site benign. Nutrition: Taking PO's Result Diagrams: 06/19/16 06:31 06/17/16 06:03 Microbiology and Other Data: Microbiology 06/16/16 15:24 Anaerobic Culture - Preliminary Wound - Hip Right No Growth Day 1 Skin and Soft Tissue MRSA/MSSA (PCR - Final Mrsa Negative S.aureus Negative Gram Stain - Final Wound Culture - Preliminary No Growth Day 1 Assess/Plan/Problems-Billing Assessment: Ms. Gerardo is a 50 yo female with mild COPD and chronic pain who is POD #3 s/p R CHALO by Dr Rangel. Hospitalists are co-managing. - Patient Problems (1) Status post total replacement of right hip Code(s): Z96.641 - PRESENCE OF RIGHT ARTIFICIAL HIP JOINT SNOMED Code(s): 338904475006 Comment: POD #3. Management per ortho. HH stable. Continue PT/OT. (2) COPD (chronic obstructive pulmonary disease) Code(s): J44.9 - CHRONIC OBSTRUCTIVE PULMONARY DISEASE, UNSPECIFIED SNOMED Code(s): 27321244 Comment: Continues to have wheeze and rhonchi. Continue Dulera and Spiriva, would recommend continuing these at discharge. Encouraged Pt to quit smoking and avoid second hand smoke. (3) Chronic pain Code(s): G89.29 - OTHER CHRONIC PAIN SNOMED Code(s): 39429886 Comment: Improved pain control. Continue Oxycontin and PRN oxycodone. 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 Perhaps related to nutrition (5) Tobacco abuse Code(s): Z72.0 - TOBACCO USE SNOMED Code(s): 377580027 Comment: Patient is motivated to quit. Denies nicotine cravings. Advised to avoid second hand smoke. (6) DVT prophylaxis Code(s): AGX6070 - SNOMED Code(s): 110118983 Comment: Warfarin (7) Full code status Code(s): Z78.9 - OTHER SPECIFIED HEALTH STATUS SNOMED Code(s): 286422646 Status and Disposition: Disposition per ortho. No acute medical concerns, but would recommend that she go home with new inhaled medications. Plan for possible discharge to home later today.
--- NOTE | 2016-06-19 09:06 | PN ---
Progress Note - Progress Note SOAP: Subjective: [50 female s/p conversion ORIF to RIght total hip arthroplasty. Patient overall doing well, pain well controlled, no fever, chills overnight. Eager for D/C. No questions/ concerns "this isn't my first rodeo" ] Objective: [General- Well appearing, NAD resting comfortably MSK- Incision C/D/I, minimal erythema around superior portion, no drainage noted , minimal tenderness to light palpation. + Dorsiflex/ plantarflexion. Active Medications Generic Name Dose Route Start Last Admin Trade Name Freq PRN Reason Stop Dose Admin Acetaminophen 650 mg 06/16/16 15:24 Tylenol Tab* PO Q4H PRN PAIN OR TEMPERATURE Albuterol 2 puff 06/16/16 15:28 06/18/16 10:09 Ventolin Hfa Inhaler* INH 2 puff Q4HR PRN Administration SHORTNESS OF BREATH Bisacodyl 10 mg 06/16/16 15:24 Dulcolax Supp* [place] DAILY PRN constipation Diphenhydramine HCl 12.5 mg 06/16/16 15:24 Benadryl Iv* IV Q6H PRN PRURITIS Docusate Sodium 100 mg 06/16/16 21:00 06/19/16 07:30 Colace Cap* PO 100 mg BID [facility] Administration Folic Acid 1 mg 06/17/16 10:00 06/18/16 10:08 Folvite Tab* PO 1 mg 1000 [facility] Administration Gabapentin 300 mg 06/16/16 21:00 06/19/16 07:30 Neurontin Cap(*) PO 300 mg TID [facility] Administration Lactulose 30 ml 06/16/16 15:24 Lactulose* PO Q6H PRN constipation Magnesium Hydroxide 30 ml 06/16/16 15:24 06/17/16 20:11 Milk Of Magnesia Liq* PO 30 ml Q6H PRN Administration constipation Mometasone Furoate/Formoterol Fumar 2 puff 06/18/16 21:00 06/19/16 07:26 Dulera 200/5 Mdi* INH 2 puff BID [facility] Administration Morphine Sulfate 4 mg 06/16/16 21:29 06/18/16 05:38 Morphine Inj (Syringe)* IV 4 mg Q2H PRN Administration PAIN Omeprazole 40 mg 06/17/16 09:00 06/19/16 07:28 Prilosec Cap* PO 40 mg QAM [facility] Administration Ondansetron HCl 4 mg 06/16/16 15:24 Zofran Inj* IV Q6H PRN nausea Ondansetron HCl 4 mg 06/16/16 15:24 Zofran Tab* PO Q6H PRN NAUSEA Oxycodone HCl 10 mg 06/16/16 15:24 06/17/16 23:02 Roxycodone Tab* PO 10 mg Q4H PRN Administration SEVERE PAIN Oxycodone HCl 20 mg 06/18/16 09:00 06/19/16 07:28 Oxycontin(*) PO 20 mg BID [facility] Administration Oxycodone/Acetaminophen 1 tab 06/16/16 15:24 06/18/16 19:17 Percocet 5/325 Tab* PO 1 tab Q3H PRN Administration PAIN - MODERATE Oxycodone/Acetaminophen 2 tab 06/16/16 15:24 06/19/16 07:31 Percocet 5/325 Tab* PO 2 tab Q3H PRN Administration PAIN - MODERATE Pharmacy Profile Note 1 note 06/17/16 17:00 06/18/16 16:37 Coumadin Daily Reminder* FOLLOW UP 1 note 1700 [facility] Administration Polyethylene Glycol/Electrolytes 17 gm 06/16/16 15:24 Miralax* PO DAILY PRN Constipation Tiotropium [place] 1 cap 06/18/16 14:00 06/19/16 07:27 Spiriva Cap.Inh* INH 1 inh DAILY [facility] Administration Vital Signs Temp 98.9 F 06/19/16 07:13 Pulse 107 06/19/16 08:27 Resp 18 06/19/16 07:31 BP 111/62 06/19/16 08:27 Pulse Ox 92 06/19/16 07:13 Intake & Output 06/18/16 06/19/16 06/19/16 18:59 06:59 18:59 Intake Total 440 1490 Output Total 950 600 Balance -510 890 Intake: IV Fluids 1010 LR 1010 Oral 440 480 Output: Urine 950 600 Other: Estimated Void Large # Voids 1 Laboratory Results - last 24 hr 06/19/16 06/19/16 06:31 06:31 Hgb 9.0 L Hct 27 L INR (Anticoag Therapy) 1.88 H ] Assessment: [50 female s/p conversion ORIF to RIght total hip arthroplasty 06/16/2016 .] Plan: [- D/C to home today with VNS - Coumadin dosing as directed - Follow up with DR. Rangel within 10 days - Total hip precautions ]
[2016-06-19] MEDS: Folic Acid TAB* 1 MG PO SCH (11:27)
--- NOTE | 2016-06-21 14:12 | DS ---
DISCHARGE SUMMARY: DATE OF ADMISSION: 06/16/16 DATE OF DISCHARGE: 06/19/16 CHIEF COMPLAINT: 1. Right hip pain secondary to severe degenerative changes due to prior hip fracture. 2. Chronic pain. 3. Chronic obstructive pulmonary disease. 4. History of alcohol use. 5. Chronic electrolyte abnormalities DISCHARGE DIAGNOSES: 1. Status post removal of hardware and right total hip arthroplasty. 2. Chronic pain. 3. Chronic obstructive pulmonary disease. 4. History of alcohol use. 5. Chronic electrolyte abnormalities PROCEDURE: Removal of hardware and right total hip arthroplasty. BRIEF HISTORY: The patient is a very pleasant 50-year-old female with complaints of right hip pain secondary to severe degenerative changes. She failed conservative treatment and has elected to undergo hardware removal and conversion to a right total hip arthroplasty by Dr. Rangel on 06/16/16. HOSPITAL COURSE: The patient was admitted to [facility] on 06/16/16 and underwent conversion of prior right hip ORIF to a right total hip arthroplasty with removal of cannulated screws. The procedure was uncomplicated and the patient recovered in the short surgical stay unit. Her Finch was removed on postoperative day #2 and she was voiding on her own without difficulty as well as having bowel motion. She was advanced to a regular diet without difficulty and her pain was controlled with OxyContin 20 mg b.i.d. as well as oxycodone 5 mg tablets q.4 hours p.r.n. Her labs and vital signs remained stable. She was able to weight bear as tolerated on the right lower extremity. She advanced appropriately with physical therapy and occupational therapy. Her DVT prophylaxis was managed with Lovenox and Coumadin until she reached a therapeutic INR. By postoperative day #3, she was orthopedically and medically stable to be discharged, to go home with home services. PHYSICAL EXAMINATION: General: Well appearing, in no acute distress. Alert and oriented. Vital Signs: Temperature 98.9, pulse 107, respirations 18, blood pressure 111/62, pulse ox 92% on room air. Extremities: The right lower extremity incision is clean, dry, and intact with minimal erythema around the superior portion. No drainage noted. Minimal tenderness to light palpation. Intact to light sensation over left lower extremity. Positive dorsiflexion and plantar flexion of left ankle. LABORATORY DATA: H and H on the day of discharge 9.0 and 27. INR 0.88. DISCHARGE MEDICATIONS: 1. Albuterol inhaler 1 puff inhaled q.4 hours p.r.n. 2. Colace 100 mg p.o. b.i.d. 3. Folic acid 1 mg tablet daily. 4. Gabapentin 300 mg p.o. t.i.d. 5. Dulera 200/5 MDI 2 puffs by inhalation b.i.d. 6. Omeprazole 40 mg daily q.a.m. 7. Vitamin D supplementation. 8. Multivitamin. 9. Spiriva 1 inhalation daily. 10. Coumadin 2 mg tablet at 5 p.m., 1-3 tablets as directed by provider. 11. OxyContin 20 mg tablet p.o. b.i.d. 12. Oxycodone 5 mg tablets p.o. q.4 hours p.r.n. CONDITION ON DISCHARGE: Stable. DISCHARGE INSTRUCTIONS: Ms. Gerardo is a very pleasant 50-year-old female, postoperative day #3 status post right total hip arthroplasty, which was uncomplicated. She is orthopedically and medically stable to go home with home services. Her labs and vital signs are stable. She will restart her home medications and she will continue to take Coumadin as directed with an INR check every Wednesday and . She will remain weightbearing as tolerated on the right lower extremity and will have home PT and will continue her exercises that she was taught in the hospital and she will take OxyContin and oxycodone as needed for pain control and take Colace two times a day for constipation. She will follow up with Dr. Rangel in approximately 10 to 14 days for incision check and suture removal. She was instructed to go immediately to the ER should she develop chest pain or shortness of breath, and should she develop any increased pain or redness or tenderness around the incision site, she is to call the office immediately. ANETA DUNN [id number]/[facility] #: [id number] MTDLinda
== END 2016-06-19 13:05 | disposition home health service (06) | DRG 301 ==
LOC: AA 06-16 11:29 → SSU 06-16 15:24
PROVIDERS: ADMIT Orthopaedic Surgery Adult Reconstructive Orthopaedic Surgery; ATTEND Orthopaedic Surgery Adult Reconstructive Orthopaedic Surgery
PROC: 0SP Lower Joints, Removal (ICD-10-PCS; 2016-06-16)
PROC: 0SR904A Replacement of Right Hip Joint with Ceramic on Polyethylene Synthetic Substitute, Uncemented, Open Approach (ICD-10-PCS; principal; 2016-06-16 14:30)
PROC: 3E0234Z Introduction of Serum, Toxoid and Vaccine into Muscle, Percutaneous Approach (ICD-10-PCS; 2016-06-17)
DX: M16.51 Unilateral post-traumatic osteoarthritis, right hip (principal); E87.8 Other disorders of electrolyte and fluid balance, not elsewhere classified; F32.9 Major depressive disorder, single episode, unspecified; F41.9 Anxiety disorder, unspecified; M40.209 Unspecified kyphosis, site unspecified; Z23 Encounter for immunization; J44.9 Chronic obstructive pulmonary disease, unspecified; G62.9 Polyneuropathy, unspecified; G89.29 Other chronic pain; R09.02 Hypoxemia; F17.200 Nicotine dependence, unspecified, uncomplicated; Z98.51 Tubal ligation status; Z82.49 Family history of ischemic heart disease and other diseases of the circulatory system; Z80.1 Family history of malignant neoplasm of trachea, bronchus and lung; Z80.52 Family history of malignant neoplasm of bladder; Z79.01 Long term (current) use of anticoagulants; K59.00 Constipation, unspecified
CPT/HCPCS: 36415; 72170; 76000; 80048; 85014; 85018; 85610; 86850; 86900; 86901; 87070; 87073; 87205; 87640; 87641; 88300; 88304; 88311; 90686; 94640; 94760; A9270-GY; C1713; C1776; J0690; J1100; J1170; J1240; J1650; J1885; J2250; J2270; J2405; J2704; J3010

== ENCOUNTER 2017-10-04 01:36 | Inpatient (IN) | payer OTHER ==
[~2017-10-04 01:36] MED LIST: Flumazenil* 0.1 MG/ML 5 ML MDV IV ONE
[2017-10-04] MEDS ORDERED: Rocuronium* 10 MG/ML VIAL ONE (01:55)
[2017-10-04] MEDS ORDERED: NS 0.9% 1000 ML* 1,000 ML IV ONE ×3 (01:56→13:20)
[2017-10-04] MEDS ORDERED: Succinylcholine* 20 MG/ML 10 ML VIAL IV ONE (01:58)
[2017-10-04] MEDS ORDERED: Etomidate* 2 MG/ML 10 ML VIAL IV ONE (01:58)
[2017-10-04] MEDS ORDERED: Rocuronium* 10 MG/ML VIAL IV ONE ×2 (01:59→03:19)
[2017-10-04 02:46] LABS: ABS Basophils 0.1 10^3/ul (0-0.2); ABS Eosinophils 0.2 10^3/ul (0-0.6); ABS Lymphocytes 2.2 10^3/ul (1.0-4.8); ABS Monocytes 1.7 10^3/ul (0-0.8); ABS Neutrophils 16.7 10^3/ul (1.5-7.7); ABS Nucleated RBC 0 10^3/ul; Hematocrit 38 % (35-47); Hemoglobin 12.6 g/dl (12.0-16.0); Lymphocyte % 10.6 % (25-47); Mean Corpuscular HGB Conc 33 g/dl (31-36); Mean Corpuscular Hemoglobin 29 pg (27-31); Mean Corpuscular Volume 87 fL (80-97); Nucleated Red Blood Cells % 0; Platelet Count 292 10^3/ul (150-450); Red Blood Count 4.36 10^6/ul (4.0-5.4); Red Cell Distribution Width 15 % (10.5-15); White Blood Count 20.9 10^3/ul (3.5-10.8)
[2017-10-04 02:50] LABS: INR 1.48 (0.77-1.02)
[2017-10-04 03:01] LABS: EGFR Non-African American 74.5 (>60)
[2017-10-04] MEDS ORDERED: Vancomycin(*) 1,000 MG in NS 0.9% 250 ML* 250 ML IVPB ONE (03:32)
[2017-10-04] MEDS ORDERED: Piperacillin/Tazobac ADVAN(*) 3.375 GM in NS 0.9% 100 ML* 100 ML IVPB ONE (03:32)
[2017-10-04] MEDS ORDERED: Propofol* 0 ML ONE (03:32)
[2017-10-04] MEDS ORDERED: Midazolam* 1 MG/ML 5 ML VIAL (5 MG) SLOW PUSH ONE (03:41)
[2017-10-04] MEDS ORDERED: Midazolam* 1 MG/ML 2 ML VIAL (2 MG) IV SLOW PU ONE ×2 (03:41→03:42)
[2017-10-04] MEDS ORDERED: fentaNYL* 50 MCG/ML 2 ML VIAL (100 MCG VIAL) IV SLOW PU PRN ×3 (03:42→13:19)
[2017-10-04] MEDS ORDERED: Propofol* 500 MG/50 ML BTL IV SCH (04:00)
[2017-10-04] MEDS ORDERED: Midazolam* 1 MG/ML 2 ML VIAL (2 MG) IV PRN (04:02)
[2017-10-04] MEDS ORDERED: Iohexol 350* (CONTRAST) 500 ML MDV IV ONE (04:26)
[2017-10-04] MEDS: NS 0.9% 1000 ML* 1,000 ML IV SCH ×4 (04:40→17:11)
[2017-10-04] MEDS ORDERED: LORazepam INJ* 2 MG/ML 1 ML VIAL ONE (05:05)
[2017-10-04] MEDS ORDERED: LORazepam INJ* 2 MG/ML 1 ML VIAL IV PUSH ONE (05:20)
[2017-10-04] MEDS ORDERED: fentaNYL* 50 MCG/ML 2 ML VIAL (100 MCG VIAL) IV SLOW PU ONE ×2 (05:20→05:30)
--- NOTE | 2017-10-04 05:21 | ED ---
Dmitri Cueto Gabriel, scribed for Robert Marx on 10/04/17 at 0147 . Substance Abuse/Use - HPI Summary HPI Summary: This patient is a 52 year old F BIBA to [facility] after being found unresponsive on the floor by her boyfriend. Pt is moving and fighting staff but is minimally responsive and is not speaking. EMS reports she was given 2.8mg of narcan and there was no response. They also state her was at the scene and was not helpful he only stated that she may have taken ativan. Last known well date is unknown. LEVEL 5 CAVEAT: exam limited is limited due to the patients unresponsiveness. - History Of Current Complaint Stated Complaint: OVERDOSE Hx Obtained From: EMS Hx From Patient Unobtainable Due To: Altered Mental Status Overdose Characteristics: Other - unknown Character: Stuporous - Allergies/Home Medications Allergies/Adverse Reactions: Allergies Allergy/AdvReac Type Severity Reaction Status Date / Time No Known Allergies Allergy Verified 08/10/17 09:27 PMH/Surg Hx/FS Hx/Imm Hx Endocrine/Hematology History: Denies: Hx Diabetes Cardiovascular History: Denies: Hx Congestive Heart Failure, Hx Hypertension - in waves,not on meds, Hx Pacemaker/ICD Respiratory History: Reports: Hx Asthma, Other Respiratory Problems/Disorders - SMOKER GI History: Reports: Hx Gastroesophageal Reflux Disease History: Denies: Hx Dialysis, Hx Renal Disease Musculoskeletal History: Reports: Hx Arthritis, Hx Back Problems - 31 year old back injury, Hx Scoliosis, Other Musculoskeletal History - chronic back pain Sensory History: Reports: Hx Contacts or Glasses - READING GLASSES Denies: Hx Hearing Aid Opthamlomology History: Reports: Hx Contacts or Glasses - READING GLASSES Neurological History: Reports: Hx Headaches, Hx Nerve Disease, 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 Psychiatric History: Reports: Hx Substance Abuse Denies: Hx Anxiety, Hx Depression, Hx Panic Disorder - Cancer History Hx Chemotherapy: No Hx Radiation Therapy: No - Surgical History Surgery Procedure, Year, and Place: RT hip surgery 2007,thr 2009,tubal ligation 1997 Hx Anesthesia Reactions: No - Social History Alcohol Use: Rare Alcohol Amount: unknown Substance Use Type: Reports: None Substance Use Comment - Amount & Last Used: unknown Smoking Status (MU): Light Every Day Tobacco Smoker Type: Cigarettes Amount Used/How Often: 1/2 PPD FOR ABOUT 15-20 YEARS Length of Time of Smoking/Using Tobacco: 15-20 YEARS Have You Smoked in the Last Year: Yes - Additional Comments History Additional Comments: LEVEL 5 CAVEAT: history is limited due to the patients unresponsiveness Review of Systems - ROS Summary Review of Systems Summary: LEVEL 5 CAVEAT: ROS is limited due to the patients unresponsiveness Neurological: Other - AMS All Other Systems Reviewed And Are Negative: No Physical Exam - Summary Physical Exam Summary: Appearance: confused, agitated, ill appearing Skin: pallor Head/face: normal ENT: normal Neck: supple, Respiratory: crackles bilaterally Cardiovascular: tachycardic Abdomen: soft Bowel: present Musculoskeletal: strength/ROM intact Triage Information Reviewed: Yes Vital Signs On Initial Exam: Initial Vitals Temp Pulse Resp BP Pulse Ox 98.2 F 129 14 181/95 90 10/04/17 01:36 10/04/17 01:36 10/04/17 01:36 10/04/17 01:36 10/04/17 01:36 Vital Signs Reviewed: Yes Completion Of Physical Exam Limited Due To: Altered Mental Status, Level 5 Procedures - Central Line Central Line Lumen: triple Central Line Procedure: betadine prep Central Line Position: femoral (R), femoral (L) Complications: unsuccesful - Intubation Time of Intubation: 01:45 Intubation Method: orotracheal Tube Size (cm): 7.5 Medications: Succinylcholine - 100mg Breath Sounds after Intubation: right greater than left Intubation Complications: no complications Diagnostics - Vital Signs Vital Signs Temp Pulse Resp BP Pulse Ox 10/04/17 04:23 105 129/89 97 10/04/17 04:01 115 119/81 100 10/04/17 04:00 113 100 10/04/17 03:56 117 126/84 96 10/04/17 03:50 115 110/83 97 10/04/17 03:45 117 114/88 100 10/04/17 03:39 123 105/75 100 10/04/17 03:29 143 132/99 100 10/04/17 03:25 147 106/78 100 10/04/17 03:19 136 94/67 100 10/04/17 02:37 144 142/105 95 10/04/17 02:27 149 172/130 96 10/04/17 02:16 145 99 10/04/17 01:36 98.2 F 129 14 181/95 90 - Laboratory Lab Results: Lab Results 10/04/17 10/04/17 10/04/17 Range/Units 02:25 02:25 02:25 WBC (3.5-10.8) 10^3/ul RBC (4.0-5.4) 10^6/ul Hgb (12.0-16.0) g/dl Hct (35-47) % MCV (80-97) fL MCH (27-31) pg MCHC (31-36) g/dl RDW (10.5-15) % Plt Count (150-450) 10^3/ul MPV (7.4-10.4) um3 Neut % (Auto) (38-83) % Lymph % (Auto) (25-47) % [place] % (Auto) (0-7) % Eos % (Auto) (0-6) % Baso % (Auto) (0-2) % Absolute Neuts (auto) (1.5-7.7) 10^3/ul Absolute Lymphs (auto) (1.0-4.8) 10^3/ul Absolute Monos (auto) (0-0.8) 10^3/ul Absolute Eos (auto) (0-0.6) 10^3/ul Absolute Basos (auto) (0-0.2) 10^3/ul Absolute Nucleated RBC 10^3/ul Nucleated RBC % INR (Anticoag Therapy) 1.48 H (0.77-1.02) APTT 37.2 H (26.0-36.3) seconds Fibrinogen 46 L* (110.8-404.3) mg/dL D-Dimer, Quantitative > 1000 H (Less Than 230) ng/mL Patient Temperature ABG pH (7.35-7.45) ABG pH (Temp Correct) ABG pCO2 (35-45) mmHg ABG pCO2 (Temp Corrct ABG pO2 (80-100) mmHg ABG pO2 (Temp Correct ABG HCO3 (19-31) mmol/L ABG O2 Saturation (95-98) % ABG Base Excess (-2.0-2.0) Respiration Rate O2 Delivery Device Ventilator Type Vent Mode FiO2 Inspiratory Time PEEP Pressure Support Pressure Control EPAP IPAP BiPAP Sodium 127 L (139-145) mmol/L Potassium TNP Chloride 91 L (101-111) mmol/L Carbon Dioxide 27 (22-32) mmol/L Anion Gap 9 (2-11) mmol/L BUN 13 (6-24) mg/dL Creatinine 0.81 (0.51-0.95) mg/dL Est GFR ( Amer) 95.9 (>60) Est GFR (Non-Af Amer) 74.5 (>60) BUN/Creatinine Ratio 16.0 (8-20) Glucose 197 H (70-100) mg/dL Calcium 9.5 (8.6-10.3) mg/dL Total Bilirubin 0.70 (0.2-1.0) mg/dL AST TNP ALT 4 L (7-52) U/L Alkaline Phosphatase 95 (34-104) U/L Total Creatine Kinase 117 (10-223) U/L Troponin I 0.04 H* (<0.04) ng/mL B-Natriuretic Peptide 61 ( - 100) pg/mL Total Protein 7.2 (6.4-8.9) g/dL Albumin 3.9 (3.2-5.2) g/dL Globulin 3.3 (2-4) g/dL Albumin/Globulin Ratio 1.2 (1-3) TSH 1.14 (0.34-5.60) mcIU/mL Salicylates < 2.50 (<30) mg/dL Acetaminophen < 15 mcg/mL Serum Alcohol < 10 (<10) mg/dL 10/04/17 10/04/17 Range/Units 02:25 03:25 WBC 20.9 H (3.5-10.8) 10^3/ul RBC 4.36 (4.0-5.4) 10^6/ul Hgb 12.6 (12.0-16.0) g/dl Hct 38 (35-47) % MCV 87 (80-97) fL MCH 29 (27-31) pg MCHC 33 (31-36) g/dl RDW 15 (10.5-15) % Plt Count 292 (150-450) 10^3/ul MPV 7.0 L (7.4-10.4) um3 Neut % (Auto) 79.9 (38-83) % Lymph % (Auto) 10.6 L (25-47) % [place] % (Auto) 8.0 H (0-7) % Eos % (Auto) 1.0 (0-6) % Baso % (Auto) 0.5 (0-2) % Absolute Neuts (auto) 16.7 H (1.5-7.7) 10^3/ul Absolute Lymphs (auto) 2.2 (1.0-4.8) 10^3/ul Absolute Monos (auto) 1.7 H (0-0.8) 10^3/ul Absolute Eos (auto) 0.2 (0-0.6) 10^3/ul Absolute Basos (auto) 0.1 (0-0.2) 10^3/ul Absolute Nucleated RBC 0 10^3/ul Nucleated RBC % 0 INR (Anticoag Therapy) (0.77-1.02) APTT (26.0-36.3) seconds Fibrinogen (110.8-404.3) mg/dL D-Dimer, Quantitative (Less Than 230) ng/mL Patient Temperature Not Reportable ABG pH 7.33 L (7.35-7.45) ABG pH (Temp Correct) Not Reportable ABG pCO2 51 H (35-45) mmHg ABG pCO2 (Temp Corrct Not Reportable ABG pO2 148 H (80-100) mmHg ABG pO2 (Temp Correct Not Reportable ABG HCO3 25.3 (19-31) mmol/L ABG O2 Saturation 96.8 (95-98) % ABG Base Excess 0.5 (-2.0-2.0) Respiration Rate 12 O2 Delivery Device ventilator Ventilator Type 400 Vent Mode cmv FiO2 90 Inspiratory Time 1.0 PEEP 5 Pressure Support Not Reportable Pressure Control Not Reportable EPAP Not Reportable IPAP Not Reportable BiPAP Not Reportable Sodium (139-145) mmol/L Potassium Chloride (101-111) mmol/L Carbon Dioxide (22-32) mmol/L Anion Gap (2-11) mmol/L BUN (6-24) mg/dL Creatinine (0.51-0.95) mg/dL Est GFR ( Amer) (>60) Est GFR (Non-Af Amer) (>60) BUN/Creatinine Ratio (8-20) Glucose (70-100) mg/dL Calcium (8.6-10.3) mg/dL Total Bilirubin (0.2-1.0) mg/dL AST ALT (7-52) U/L Alkaline Phosphatase (34-104) U/L Total Creatine Kinase (10-223) U/L Troponin I (<0.04) ng/mL B-Natriuretic Peptide ( - 100) pg/mL Total Protein (6.4-8.9) g/dL Albumin (3.2-5.2) g/dL Globulin (2-4) g/dL Albumin/Globulin Ratio (1-3) TSH (0.34-5.60) mcIU/mL Salicylates (<30) mg/dL Acetaminophen mcg/mL Serum Alcohol (<10) mg/dL Result Diagrams: 10/04/17 02:25 10/04/17 02:25 Lab Statement: Any lab studies that have been ordered have been reviewed, and results considered in the medical decision making process. Course/Dx - Course Assessment/Plan: This patient is a 52 year old F BIBA to [facility] after being found unresponsive on the floor by her boyfriend. Pt is moving and fighting staff but is minimally responsive and is not speaking. EMS reports she was given 2.8mg of narcan and there was no response. They also state her was at the scene and was not helpful he only stated that she may have taken ativan. Last known well date is unknown. LEVEL 5 CAVEAT: exam is limited due to the patients unresponsiveness. CT Head reveals, per radiologist, enlarged right calvarial mass with bony destruction concerning for metastatic disease. Correlation with history of primary malignancy is recommended. Dx hematuria, brain tumor, renal cancer, AMS, respiratory failure, sepsis, hyponatremia, positive trop. Blood work obtained. We discussed patient care with Dr. Garcia and they have agreed to contact ICU in order to have the patient admitted. Patient will be admitted. The patient is agreeable with this plan. - Diagnoses Differential Diagnosis/HQI/PQRI: Positive: Alcohol Abuse, Drug Abuse, Other - ams/resp failure/sepsis Provider Diagnoses: Hematuria, Brain tumor, Renal cancer, Altered mental status, Respiratory failure, Sepsis, Hyponatremia, Elevated troponin, Required emergency intubation , COPD (chronic obstructive pulmonary disease) - Physician Notifications Discussed Care Of Patient With: Gila Garcia Time Discussed With Above Provider: 04:10 Instructed by Provider To: Other - Dr. Garcia will contact ICU to have the patinet admitted - Critical Care Time Critical Care Time: 75-104 min Discharge - Sign-Out/Discharge Documenting (check all that apply): Discharge/Admit/Transfer - admitted to ICU - Discharge Plan Condition: Fair Disposition: ADMITTED TO [facility] - Billing Disposition and Condition Condition: FAIR [place] [facility] [place] The documentation as recorded by the Dmitri jung Gabriel accurately reflects the service I personally performed and the decisions made by , Robert Marx.
[2017-10-04] MEDS ORDERED: fentaNYL* 50 MCG/ML 2 ML VIAL (100 MCG VIAL) ONE ×4 (05:22→23:35)
[2017-10-04] MEDS ORDERED: Norepinephrine 16MCG/ML IVPRE* 4,000 MCG/250 ML BAG IV SCH (05:25)
[2017-10-04] MEDS ORDERED: fentaNYL* 50 MCG/ML 2 ML VIAL (100 MCG VIAL) IV ONE (06:00)
[2017-10-04] MEDS ORDERED: NS 0.9% 1000 ML* 2,000 ML IV ONE (06:00)
[2017-10-04] MEDS ORDERED: Propofol* 100 ML ONE (06:52)
--- NOTE | 2017-10-04 08:21 | RAD ---
INDICATION: Altered mental status, status post intubation. COMPARISON: Comparison is made with a prior CT of the brain from August 10, 2017. TECHNIQUE: Contiguous axial sections of the brain were obtained from the skull base to the vertex without contrast. FINDINGS: The ventricles, cisterns and sulci are within normal limits. No significant focal abnormality or mass effect is seen. There is no evidence for hemorrhage. There is a mass in the calvarium present in the posterior right parietal region measuring approximately 5.1 cm in size. This has increased in size from the prior examination and previously measured 3.2 cm in size. This has a permeative osseous destructive pattern within the calvarium and extends into the soft tissues of the scalp. IMPRESSION: 1. NO EVIDENCE FOR ACUTE INTRACRANIAL ABNORMALITY. 2. RIGHT CALVARIAL MASS INCREASED IN SIZE SUSPICIOUS FOR METASTATIC DISEASE.
[2017-10-04 08:22] LABS: Urine Color Red
[2017-10-04 08:23] LABS: Urine Appearance Turbid; Urine Specific Gravity 1.058 (1.010-1.030)
[2017-10-04 08:29] LABS: Hematocrit 28 % (35-47)
--- NOTE | 2017-10-04 08:37 | RAD ---
Indication: Unresponsive. Tube placement. History of tobacco use. Comparison: CT of the same date. Technique: Supine AP chest 0541 hours Report: RIGHT suprahilar pulmonary mass. LEFT lung volume loss with leftward mediastinal shift. This appears secondary to RIGHT mainstem bronchus position of the endotracheal tube. Negative for pleural effusion or pneumothorax. Negative for cardiomegaly. Unremarkable central pulmonary vasculature. IMPRESSION: RIGHT mainstem bronchus position of the endotracheal tube tip accounting for partial atelectasis of the LEFT lung. The subsequent radiographic exam of 0709 hours documents the tube withdrawn to 2.5 cm above the Donya.
--- NOTE | 2017-10-04 08:41 | RAD ---
INDICATION: Status post central line placement COMPARISON: Chest x-ray acquired the same date at 0542 hours TECHNIQUE: Single AP portable view of the chest was obtained at 0709 hours. FINDINGS: Image quality is compromised due to the relative inferiority of a portable chest x-ray. Again seen is an appropriately positioned endotracheal tube with the tip terminating at the level the clavicular heads, 2.4 cm above the vish. There is been interval placement of a left subclavian vein central catheter with the tip terminating below the field of view of the radiograph. The heart and mediastinum exhibit normal size and contour. The lungs are grossly clear. There is no evidence of a large pleural effusion. Visualized bones are normal for the patient's age. IMPRESSION: Interval placement of a left subclavian vein central venous catheter. The tip terminates beyond the [id number] of the image overlying the SVC remaining exact determination of the termination point.
--- NOTE | 2017-10-04 08:55 | PRO ---
DATE OF PROCEDURE: 10/04/17 - ROOM #ICU-02 PROCEDURE: Flexible bronchoscopy at the bedside. INDICATION: The patient is a 52-year-old female who was admitted with gross hematuria, change in mental status, and a history of metastatic renal cell carcinoma who was intubated in the emergency department, and chest x-ray post- intubation revealed hyperinflation of the right lung with shift of the mediastinum to the left. ET tube was pulled back without a dramatic change in chest x-ray. So, an emergent bronchoscopy was done to determine the presence of any obstructing airway lesions. DESCRIPTION OF PROCEDURE: With the patient intubated, a flexible scope was introduced through the ET tube and advanced into both the right and left mainstem bronchi, and there were no obstructing lesions noted. Tip of the tube was above the vish and was left in place. There were no apparent complications. FINAL DIAGNOSIS: No obstructing endobronchial lesions in the trachea or mainstem bronchi. [id number] #: [id number] MTDD
--- NOTE | 2017-10-04 09:07 | RAD ---
Indication: Left leg edema. Duplex Doppler sonography of the deep venous system of the left lower extremity deep venous system was performed. Bilaterally the common femoral veins appear patent and compressible. Left proximal greater saphenous vein, proximal deep femoral vein, femoral vein, popliteal vein, posterior tibial veins and peroneal veins appear patent and compressible. IMPRESSION: NO EVIDENCE OF DEEP VENOUS THROMBOSIS IS IDENTIFIED.
--- NOTE | 2017-10-04 09:42 | RAD ---
Indication: Confusion, right groin hematoma, evaluate for hemorrhage, evaluate for pulmonary embolus. Contrast: Administered 92.9 ml of OMNIPAQUE 300 mg/ml. CTA of the chest, abdomen and pelvis was performed after oral and IV contrast administration. Coronal and sagittal reconstructed images were obtained. The pulmonary arterial tree is well opacified. There is a filling defect in the posterior basilar segment of the right lower lobe consistent with pulmonary embolus. No other areas of filling defects are noted. The heart demonstrates no pericardial effusion. The thoracic aorta demonstrates no aneurysmal dilatation or aortic dissection. There is a mass in the right upper lobe of the lung field with cavitation consistent with carcinoma. This is similar to that seen on September 06, 2017. Additional nodule in the left lower lobe is noted. Cavitary lesion in the right lower lobe is also noted. The abdominal aorta and descending thoracic aorta demonstrates atherosclerosis without evidence of aneurysmal dilatation. The left renal artery is well perfused. The right renal artery demonstrates minimal thin vessels supplying the right renal artery. Common iliac and external iliac arteries demonstrate atherosclerosis. Large rectus abdominis hematoma is noted on the right partially obscured by the right hip replacement. This measure approximately 10.7 x 2.9 x 12.1 cm. The liver is normal in size. No focal lesions are identified. There is a large right renal mass in the lower pole and midpole of the right kidney. There is tumor thrombus extending into the inferior vena cava and the contralateral renal vein. Additional mass is noted in the lower pole of the left kidney measuring at least 2.5 cm. Moderate retroperitoneal adenopathy is noted. There is right hydroureter noted. A distal calculus is not identified. The urinary bladder is partially obscured by the right hip replacement. No dilated loops of bowel are noted. The colon is filled with stool. IMPRESSION: 1. There is a pulmonary embolus in the posterior basilar segment of the right lower lobe. 2. Right upper lobe and right lower lobe masses are noted in the lung guerra, unchanged from previous exam. Indeterminate left lower lobe peripheral nodule is noted. 3. There is a large right renal mass multifocal with extension into the inferior vena cava and right renal vein and likely extension into the left renal vein. Suspicious mass is noted in the lower pole of left kidney which is progressive since prior exam. The right renal lesion also appears to be progressive. There is moderate retroperitoneal adenopathy noted. Right hydroureter is noted.
--- NOTE | 2017-10-04 09:45 | HP ---
HISTORY AND PHYSICAL: DATE OF ADMISSION: 10/04/17 PRIMARY CARE PROVIDER: Dr. Park. ONCOLOGIST: Dr. Locke. CHIEF COMPLAINT: Unresponsive. HISTORY OF PRESENT ILLNESS: Ms. Gerardo is a 52-year-old female who was recently diagnosed with diffusely metastatic renal cell carcinoma who presents to the emergency room after going unresponsive at home. The history was obtained from the patient's boyfriend as the patient is currently intubated and not able to provide any history. He states that approximately 12:30 a.m. on , she stood up to go to the bathroom. After she had stood up, he asked her if she needed anything. She stated that she had urinated on herself and that she needed new underwear and sweatpants. He got up to get those for her and when he turned around, she was lying flat on her back on the bed with her eyes wide open, her mouth wide open, and appearing to not breathe very effectively. She was noted to be unresponsive. He states that he rubbed on her chest and gave her mouth to mouth resuscitation. He contacted EMS. When EMS arrived, they reportedly gave Narcan for concerns of narcotic overdose. It was then felt that perhaps she had an overdose of Ativan. She was bagged on the way into the emergency room and after arrival to the ER, she was intubated without any difficulty. The patient's boyfriend states that when she was found lying flat on the bed, he did not notice any shaking of her limbs. He does state that this is the third episode over the last couple of weeks that she has had like this. He notes that in general she had been behaving fairly normally. She was anxious to get started on her cancer medication and have her appointment with Dr. Locke today. She reportedly has had no fevers or chills. She has been constipated. He does note that she has been more forgetful recently. PAST MEDICAL HISTORY: 1. 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 2. Chronic back pain. 3. History of alcohol abuse. 4. Asthma. PAST SURGICAL HISTORY: 1. Right total hip arthroplasty following right hip fracture ORIF. 2. Tubal ligation. MEDICATIONS: Unknown though the patient's boyfriend is going to bring them into the hospital this morning. ALLERGIES: No known drug allergies. FAMILY HISTORY: Unobtainable. SOCIAL HISTORY: Unobtainable. REVIEW OF SYSTEMS: Unobtainable. PHYSICAL EXAMINATION GENERAL: The patient is a well-developed, middle-aged female who appears to be somewhat dusky in color, lying flat on her back, intubated in the emergency room , in no acute distress. VITAL SIGNS: Blood pressure 126/84, pulse 117, respirations 12, temp 98.2, and O2 sat 96% on 90% FiO2. HEENT: Pupils are round. Extraocular muscles are not able to tested as the patient has received paralytic. Oropharynx is clear and currently intubated. PULMONARY: Lungs are clear to auscultation anteriorly. CARDIAC: Normal S1, S2. Heart rate is tachycardic but regular. There is 1+ bilateral lower extremity edema with the left leg being almost twice the size of the right. ABDOMEN: Bowel sounds present. Abdomen is soft, nontender, nondistended. MUSCULOSKELETAL: The patient does not move any of her extremities spontaneously. At this point reportedly when she presented to the emergency room , she had significant agitation and was moving all limbs. SKIN: Warm and dry. There are no rashes. The patient does have mottling of the bilateral lower extremities from feet to mid alex. The skin is cool to touch. She has a very large right-sided groin hematoma. There are scattered pokes from prior IV access attempts. NEUROLOGIC: Unable to be tested at this time. PSYCH: Unable to be tested at this time. LABORATORY DATA: WBC 20.9, hemoglobin 12.6, hematocrit 38, platelets 292. INR 1.48, PTT 37.2, fibrinogen 46. D-dimer greater than 1000. Sodium 127, potassium not run. Chloride 91, CO2 27, BUN 13, creatinine 0.81, glucose 197. Calcium 9.5, bilirubin 0.7, AST not run, ALT 4, alk phos 95, CPK 117, troponin 0.04. BNP 61, albumin 3.9, TSH 1.14, salicylates less than 2.5, acetaminophen less than 15, serum alcohol less than 10. ABG 7.33/51/148. CT brain, enlarging right calvarial mass with bony destruction concerning for metastatic disease. CTA chest, abdomen, and pelvis read is pending. ASSESSMENT AND PLAN: Ms. Gerardo is a 52-year-old female with widely metastatic renal cell carcinoma who presented to the emergency room after going unresponsive at home. 1. Unresponsiveness. The etiology behind this is not clear. The patient was reportedly in her usual state prior to becoming unresponsive. The differential includes brain bleed, which has been ruled out by CT versus seizure versus infectious process versus other process. The patient will have an EEG ordered. Currently, she is receiving sedation as she is on the ventilator. Management will be taken over by the consumer marketing specialist later this morning. 2. Questionable bleeding disorders. The patient had numerous attempts at central line. However, these were all unsuccessful. It was unable to have the catheter threaded through. The patient has developed significant bleeding in the right groin. Nursing indicates that every time the patient was poked, she bled quite profusely. It has also been noted that the patient has very dark bloody urine, which has been going on for the last 3 days. Concern is for possible DIC with elevated INR, PTT, and D-dimer and the low fibrinogen level. A hematology consultation will be requested. For now, we will follow blood counts. Repeat H and H has been ordered as she reportedly lost a significant amount of blood from the right groin. 3. Leukocytosis. The patient's boyfriend reports no history of infectious processes recently. The patient is afebrile. Her CTA does not reveal any evidence of infiltrate. A urinalysis at this time is likely to be useless given how the bloody the urine is. I am going to hold off on antibiotics for now. 4. Acute hypoxic respiratory failure. The patient is requiring supplemental oxygen and ventilatory support at this time. The etiology of this is unclear. Hopefully, the FiO2 can be weaned down in the near future. We will continue to follow this. 5. DVT prophylaxis. According to the Adult Thrombosis Prophylaxis Risk Factor Assessment Guide, the patient has a total risk factor score of 3 making her high risk. Chemical prophylaxis is going to be held at this time given the significant bleeding from the right groin stick, and mechanical prophylaxis will also be withheld until it is identified if the patient has a DVT given the discrepancy in her calf sizes. 6. Code status is full. The patient's surrogate decision maker is her boyfriend, Luis F Parra. TIME SPENT: 85 minutes was spent on critical care time with this patient. [id number]/CPS #: [id number] [facility]
[2017-10-04] MEDS: Chlorhexidine MOUTHWASH 0.12%* 15 ML UDC TOPICAL SCH ×4 (10:40→20:58)
[2017-10-04] MEDS: Pantoprazole IV* 40 MG IV SCH (10:40)
--- NOTE | 2017-10-04 10:44 | PN ---
Progress Note - Progress Note Date of Service: 10/04/17 SOAP: Subjective: []See details of H and P for presentation. She had syncopal episode and respioratory failure at home. In ER intubated and now in ICU. Has been feeling poorly but stable at home. Walking with walker, eating. Chlorhexidine Gluconate (Peridex Mouth Wash 0.12%*) 15 ml TOPICAL Q4H NICK Sodium Chloride (Ns 0.9% 1000 Ml*) 1,000 mls @ 100 mls/hr IV ED ONCE ONE Stop: 10/04/17 11:55 Last Admin: 10/04/17 03:37 Dose: 100 mls/hr Propofol (Diprivan*) 500 mg in 50 mls @ 0.599 mls/hr IV .(Initial Rate) NICK; 2 MCG/KG/MIN PRN Reason: Protocol Last Admin: 10/04/17 07:00 Dose: 18.8 mls/hr Sodium Chloride (Ns 0.9% 1000 Ml*) 1,000 mls @ 125 mls/hr IV PER RATE NICK Last Admin: 10/04/17 07:17 Dose: 125 mls/hr Norepinephrine Bitartrate (Levophed 16 Mcg/Ml Premix Bag*) 4,000 mcg in 250 mls @ 18.75 mls/hr IV .INITIAL RATE NICK; 5 MCG/MIN PRN Reason: Protocol Last Admin: 10/04/17 05:30 Dose: 18.75 mls/hr Sodium Chloride (Ns 0.9% 1000 Ml*) 1,000 mls @ 1,000 mls/hr IV .PER RATE ONE Stop: 10/04/17 11:15 Last Admin: 10/04/17 10:32 Dose: 1,000 mls/hr Pantoprazole Sodium (Protonix Iv*) 40 mg IV Q24H NICK Objective: [] Vital Signs Temp Pulse Resp BP Pulse Ox 97.7 F 89 12 96/68 100 10/04/17 09:30 10/04/17 09:30 10/04/17 08:23 10/04/17 09:30 10/04/17 09:30 HEENT - Pale, bleeding around ET tube. No LAD Lungs: on vent, no wheezing. RRR s1s2 +BS, distended, mass on right side, right flank. Some grimace to pain. Ext cool, has pulses CT scan reviwed with Dr. Pavon. She has thrombus in renal vein and IVC as well as right pulmonary, possible tumor thrombus. Large right sided tumor mass. Pelvic lytic lesions. Cavitary lung lesions. Head CT with bone mass, soft tissue mass Abnormal Lab Results 10/04/17 10/04/17 10/04/17 01:58 02:25 02:25 WBC RBC Hgb Hct MCV MCH MCHC RDW Plt Count MPV Neut % (Auto) Lymph % (Auto) Clarke % (Auto) Eos % (Auto) Baso % (Auto) Absolute Neuts (auto) Absolute Lymphs (auto) Absolute Monos (auto) Absolute Eos (auto) Absolute Basos (auto) Absolute Nucleated RBC Nucleated RBC % INR (Anticoag Therapy) APTT Fibrinogen D-Dimer, Quantitative Patient Temperature ABG pH ABG pH (Temp Correct) ABG pCO2 ABG pCO2 (Temp Corrct ABG pO2 ABG pO2 (Temp Correct ABG HCO3 ABG O2 Saturation ABG Base Excess Respiration Rate O2 Delivery Device Ventilator Type Vent Mode FiO2 Inspiratory Time PEEP Pressure Support Pressure Control EPAP IPAP BiPAP Sodium 127 L Potassium TNP Chloride 91 L Carbon Dioxide 27 Anion Gap 9 BUN 13 Creatinine 0.81 Est GFR ( Amer) 95.9 Est GFR (Non-Af Amer) 74.5 BUN/Creatinine Ratio 16.0 Glucose 197 H POC Glucose (mg/dL) 210 H Calcium 9.5 Total Bilirubin 0.70 AST TNP ALT 4 L Alkaline Phosphatase 95 Total Creatine Kinase 117 Troponin I 0.04 H* B-Natriuretic Peptide 61 Total Protein 7.2 Albumin 3.9 Globulin 3.3 Albumin/Globulin Ratio 1.2 TSH 1.14 Urine Color Urine Appearance Urine pH Ur Specific [place] Urine Protein Urine Ketones Urine Blood Urine Nitrate Urine Bilirubin Urine Urobilinogen Ur Leukocyte Esterase Urine WBC (Auto) Urine RBC (Auto) Urine Glucose Urine Ascorbic Acid Salicylates < 2.50 Acetaminophen < 15 Serum Alcohol < 10 10/04/17 10/04/17 10/04/17 02:25 02:25 03:25 WBC 20.9 H RBC 4.36 Hgb 12.6 Hct 38 MCV 87 MCH 29 MCHC 33 RDW 15 Plt Count 292 MPV 7.0 L Neut % (Auto) 79.9 Lymph % (Auto) 10.6 L Clarke % (Auto) 8.0 H Eos % (Auto) 1.0 Baso % (Auto) 0.5 Absolute Neuts (auto) 16.7 H Absolute Lymphs (auto) 2.2 Absolute Monos (auto) 1.7 H Absolute Eos (auto) 0.2 Absolute Basos (auto) 0.1 Absolute Nucleated RBC 0 Nucleated RBC % 0 INR (Anticoag Therapy) 1.48 H APTT 37.2 H Fibrinogen 46 L* D-Dimer, Quantitative > 1000 H Patient Temperature Not Reportable ABG pH 7.33 L ABG pH (Temp Correct) Not Reportable ABG pCO2 51 H ABG pCO2 (Temp Corrct Not Reportable ABG pO2 148 H ABG pO2 (Temp Correct Not Reportable ABG HCO3 25.3 ABG O2 Saturation 96.8 ABG Base Excess 0.5 Respiration Rate 12 O2 Delivery Device ventilator Ventilator Type 400 Vent Mode cmv FiO2 90 Inspiratory Time 1.0 PEEP 5 Pressure Support Not Reportable Pressure Control Not Reportable EPAP Not Reportable IPAP Not Reportable BiPAP Not Reportable Sodium Potassium Chloride Carbon Dioxide Anion Gap BUN Creatinine Est GFR ( Amer) Est GFR (Non-Af Amer) BUN/Creatinine Ratio Glucose POC Glucose (mg/dL) Calcium Total Bilirubin AST ALT Alkaline Phosphatase Total Creatine Kinase Troponin I B-Natriuretic Peptide Total Protein Albumin Globulin Albumin/Globulin Ratio TSH Urine Color Urine Appearance Urine pH Ur Specific [place] Urine Protein Urine Ketones Urine Blood Urine Nitrate Urine Bilirubin Urine Urobilinogen Ur Leukocyte Esterase Urine WBC (Auto) Urine RBC (Auto) Urine Glucose Urine Ascorbic Acid Salicylates Acetaminophen Serum Alcohol 10/04/17 10/04/17 10/04/17 08:04 08:18 08:18 WBC RBC Hgb 9.0 L Hct 28 L MCV MCH MCHC RDW Plt Count MPV Neut % (Auto) Lymph % (Auto) Clarke % (Auto) Eos % (Auto) Baso % (Auto) Absolute Neuts (auto) Absolute Lymphs (auto) Absolute Monos (auto) Absolute Eos (auto) Absolute Basos (auto) Absolute Nucleated RBC Nucleated RBC % INR (Anticoag Therapy) APTT Fibrinogen D-Dimer, Quantitative Patient Temperature ABG pH ABG pH (Temp Correct) ABG pCO2 ABG pCO2 (Temp Corrct ABG pO2 ABG pO2 (Temp Correct ABG HCO3 ABG O2 Saturation ABG Base Excess Respiration Rate O2 Delivery Device Ventilator Type Vent Mode FiO2 Inspiratory Time PEEP Pressure Support Pressure Control EPAP IPAP BiPAP Sodium Potassium TNP Chloride Carbon Dioxide Anion Gap BUN Creatinine Est GFR ( Amer) Est GFR (Non-Af Amer) BUN/Creatinine Ratio Glucose POC Glucose (mg/dL) Calcium Total Bilirubin AST TNP ALT Alkaline Phosphatase Total Creatine Kinase Troponin I B-Natriuretic Peptide Total Protein Albumin Globulin Albumin/Globulin Ratio TSH Urine Color Red A Urine Appearance Turbid Urine pH TNP Ur Specific [place] 1.058 H Urine Protein TNP Urine Ketones TNP Urine Blood TNP Urine Nitrate TNP Urine Bilirubin TNP Urine Urobilinogen TNP Ur Leukocyte Esterase TNP Urine WBC (Auto) Trace(0-5/hpf) Urine RBC (Auto) 3+(>10/hpf) A Urine Glucose TNP Urine Ascorbic Acid TNP Salicylates Acetaminophen Serum Alcohol 10/04/17 09:27 WBC RBC Hgb Hct MCV MCH MCHC RDW Plt Count MPV Neut % (Auto) Lymph % (Auto) Clarke % (Auto) Eos % (Auto) Baso % (Auto) Absolute Neuts (auto) Absolute Lymphs (auto) Absolute Monos (auto) Absolute Eos (auto) Absolute Basos (auto) Absolute Nucleated RBC Nucleated RBC % INR (Anticoag Therapy) APTT Fibrinogen D-Dimer, Quantitative Patient Temperature ABG pH ABG pH (Temp Correct) ABG pCO2 ABG pCO2 (Temp Corrct ABG pO2 ABG pO2 (Temp Correct ABG HCO3 ABG O2 Saturation ABG Base Excess Respiration Rate O2 Delivery Device Ventilator Type Vent Mode FiO2 Inspiratory Time PEEP Pressure Support Pressure Control EPAP IPAP BiPAP Sodium Potassium TNP Chloride Carbon Dioxide Anion Gap BUN Creatinine Est GFR ( Amer) Est GFR (Non-Af Amer) BUN/Creatinine Ratio Glucose POC Glucose (mg/dL) Calcium Total Bilirubin AST TNP ALT Alkaline Phosphatase Total Creatine Kinase Troponin I B-Natriuretic Peptide Total Protein Albumin Globulin Albumin/Globulin Ratio TSH Urine Color Urine Appearance Urine pH Ur Specific [place] Urine Protein Urine Ketones Urine Blood Urine Nitrate Urine Bilirubin Urine Urobilinogen Ur Leukocyte Esterase Urine WBC (Auto) Urine RBC (Auto) Urine Glucose Urine Ascorbic Acid Salicylates Acetaminophen Serum Alcohol Assessment: []52 year old with RCC metastatic to renal vein and potential tumor thrombus in IVC and lungs. She passed out at home and is now intubated in ICU on pressers, gross haematuria and coagulation profile c/w DIC. Differential is disseminated RCC and tissue factor induced DIC as most likley, may have acute infection. Syncope may have been primary neuralgic event, dehydration, hemorrhage, infection and sepsis. Now in ICU on full support. Discussed with significant other of 14 years who is her health care proxy. We can see if she improved with ICU support over next 24 hrs but I suspect she has tumor driving decompensation and will not get better. If that is the case, she cannot have therapy for her cancer, will need to discuss withdrawal of care and she will . She has 2 daughters in [place] and two brothers in [place]. Plan: []1. Will continue ICU support today including pressers, vent and transfusion if needed. 2. Partner will call family, including daughters in [place]. 3. Will follow up over next 48 hrs and check progress. 4. No anticoagulation given gross hematuria. face time 45 min with patient and partner.
[2017-10-04] MEDS: Hydrocortisone INJ* 100 MG VIAL IV SCH ×2 (12:26→17:03)
[2017-10-04 13:25] LABS: Hematocrit 21 % (35-47); Hemoglobin 7.1 g/dl (12.0-16.0); Mean Corpuscular HGB Conc 34 g/dl (31-36); Mean Corpuscular Hemoglobin 30 pg (27-31); Mean Corpuscular Volume 89 fL (80-97); Mean Platelet Volume 7.4 um3 (7.4-10.4); Platelet Count 215 10^3/ul (150-450); Red Blood Count 2.34 10^6/ul (4.0-5.4); Red Cell Distribution Width 15 % (10.5-15); White Blood Count 10.5 10^3/ul (3.5-10.8)
--- NOTE | 2017-10-04 13:55 | PN ---
Progress Note - Progress Note Date of Service: 10/04/17 Note: CRITICAL CARE MEDICINE Date: 10/04/17 Time: 1300 SUBJECTIVE: Patient seen and examined. Proxy at bedside. PHYSICAL EXAM: looks acutely ashen Vital Signs: Reviewed. Hr 90s. on levophed. Neurologic: awake, follows a few commands but otherwise lethargy. HEENT: pupils equal. Sclera anicteric. Trachea midline. Cardiovascular: S1 S2 distant, no m, Respiratory: clear bl; meek on apv vent. Abdomen: Soft, nt. No r/g/r. Extremities: dep thigh edema. delayed cap refill. cool peripherally moreso in hands Access: piv: access was difficult. ecchymosis at Right groin attempted site. LABS: Reviewed. IMAGING: Reviewed. MEDICATIONS: Reviewed. ASSESSMENT: 52 F Extensive metastatic RCC; with extension into right renal vein, IVD; with seeming mets to right lung, left renal and cerebral. 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 PLAN: Neurologic: low dose propofol. keep comfy but awake some. at risk for seizure and eeg performed but not seemingly the primary. f/u any need for aeds. At risk for hemorrhage. f/u neuro evals. maintain perfusion. Cardiovascular: on leveophed this am. acting like obstructive/cardiogenic shock components and will give further volume today to see if we can find a balance. perfusion holding but poor reserve. Given overall outlook would be worse to grossly overload with fluid. Check echo, more prognostic, but also to see filling and whether any tumor burden. maintain sbp >90. Respiratory: meek on apv. can wean O2. hopefully just needing some time on vent as acid base seems to be holding and mv low. can we push her towards liberation as early as tomorrow if all factors can equilize: ie neuro status, cardio, bleeding etc. Gastrointestinal: ogt. hold on feeds. utilize ppi today. Renal/Metabolic: gross hematuria. related to rcc. f/u coag needs. not surgical or emblization candidate. enure no bladder clotting that would potentiate cbi needs. Infectious Disease: no seen infective burden seen, wbc has come down post reactive; can hold off on abx. Hematology: d/w onc this am. poor situation and outcome. no chemo presently. quite advance tumor and functional status already poor, now currently worse; question will be can she stabilize at all from current critical illness, which is not to likely, in order to improve enough towards a palliative chemo regimen vs palliation alone Endocrine: bp still low end. did receive etomidate. given dynamics, pulse with stress dose steroids. Musculoskeletal: bedrest. Psych/Social: proxy updated at length. further family coming in, including pts mother and sister. Proxy desires their support with decisions as well, and will remain full code at present, but to consider dnr, and once liberation attempt from vent planned, would also institute dni. Supportive and preventative care as ordered. SUP: ppi VTE prophylaxis: scds given dic Finch catheter given critical illness, monitoring needs for accurate assessment of EDY and KDIGO criteria for critically ill patients and to avoid potential harms of urinary retention, skin breakdown/ulcers. Disposition: ICU Code Status: Full presently Critical Care Time: 55min Whitney Lambert DO
--- NOTE | 2017-10-04 15:06 | PN ---
Progress Note - Progress Note Date of Service: 10/04/17 Note: CRITICAL CARE MEDICINE Date: 10/04/17 Time: 1440 Family at bedside, updated. Discussed poor prognosis and current treatment attempts. Needing fine balance to see if we can get aby to reverse any of the acute critical ailments, vs non-reversible nature of her underlying met ca. All expressed understanding. Continued relative aggressive care to see if we can get to a better potentials for some quality of life in a short time frame, but do so as DNR. Pts mother (Rabia Guerra [phone]) wants to be actively involved, and supported by proxy Luis F. Disposition: ICU Code Status: DNR, continued care Critical Care Time: 20min additional F. Peng Lambert, DO
--- NOTE | 2017-10-04 15:10 | ECHO ---
Patient: SARAH VILLALBA [facility] Rec#: [id number] : 1965 Date: 10/04/2017 Age: 52y Height: 157.48 cm / 62.0 in Weight: 53.07 kg / 117.0 lbs Sex: F BSA: 1.52 Room#: ICU-2 Admit Date#: 10/04/2017 Type: Inpatient Referring: Ravi Lambert Reading: Suman Silva MD Data Management: Sugey Reynolds LEIDA CC: Ta Park MD Transthoracic Echocardiogram Indication: Pulmonary Embolism//Hypotension BP: 79/56 HR: 90 Rhythm: NSR Findings History: Metastatic renal cell cancer with possible thrombus to ICV and lungs,DIC, former ETOH abuse. Currently sedated , intubated and mechanically ventilated. Levophed gtt running at 7mcg/min during this study. Technical Comments: The study is technically limited due to patient being intubated and on a ventilator. Completed at 1230. Left Ventricle: The left ventricular chamber size is decreased. Global left ventricular wall motion and contractility are within normal limits. There is normal left ventricular systolic function. The estimated ejection fraction is 55-60%. Abnormal left ventricular diastolic function is observed. Left Atrium: The left atrial cavity size is abnormally small. Right Ventricle: The right ventricular cavity size is normal. The right ventricular global systolic function is normal. Right Atrium: The right atrial cavity size is abnormally small. Aortic Valve: The aortic valve is trileaflet. There is no evidence of aortic valve thickening. There is no evidence of aortic regurgitation. There is no evidence of aortic stenosis. Mitral Valve: The mitral valve leaflets appear normal. There is no evidence of mitral regurgitation. There is no evidence of mitral stenosis. Tricuspid Valve: The tricuspid valve leaflets are normal. There is mild tricuspid regurgitation. Unable to estimate the right ventricular systolic pressure. There is no tricuspid stenosis. Pulmonic Valve: The pulmonic valve appears normal. There is no evidence of pulmonic regurgitation. There is no pulmonic stenosis. Pericardium: The pericardium appears normal. Aorta: There is no dilatation of the ascending aorta. The aortic arch is not well visualized. There is no dilation of the aortic root. Pulmonary Artery: The main pulmonary artery appears normal. Venous: Unable to accurately comment on the size collapsibility of the IVC as the patient in known to be on mechanical ventilation. Conclusions Global left ventricular wall motion and contractility are within normal limits. There is normal left ventricular systolic function. The estimated ejection fraction is 55-60%. The right ventricular global systolic function is normal. There is no evidence of aortic stenosis. There is no evidence of mitral regurgitation. There is mild tricuspid regurgitation. Unable to estimate the right ventricular systolic pressure. The pericardium appears normal. Measurements Name Value Normal Range RVIDd (AP) 2D 2.3 cm (0.9 - 2.6) RVDdMajor (2D) 3 cm (2.2 - 4.4) RAd ISD 4CH 2.9 cm (3.4 - 4.9) RA (A4C)W 3.4 cm (2.9 - 4.6) IVSd (2D) 0.5 cm (0.6 - 1) LVPWd (2D) 0.7 cm (0.6 - 1) LVIDd (2D) 3.1 cm (3.6 - 5.4) LVIDs (2D) 2 cm - LV FS (2D) 35 % (25 - 45) Aortic Annulus 1.5 cm (1.4 - 2.6) Ao root diameter (2D) 2.7 cm (2.1 - 3.5) Ascending Ao 2.3 cm (2.1 - 3.4) LA dimension (AP) 2D 2.1 cm (2.3 - 3.8) LAd ISD 4CH 3.5 cm (2.9 - 5.3) LA ISD 4CH W 2.8 cm (2.5 - 4.5) Name Value Normal Range LA ESV SP 4CH (A/L) 18 ml - LA ESV SP 2CH (A/L) 18 ml - LA ESV BP (A/L) 18 ml - LA ESV BP (A/L) index 12.1 ml/m2 - LA ESV SP 4CH (MOD) 17 ml - LA ESV SP 2CH (MOD) 17 ml - Name Value Normal Range MV E-wave Vmax 1 m/sec - MV deceleration time 189 msec - MV A-wave Vmax 1.2 m/sec - MV E:A ratio 0.85 ratio - LV septal e' Vmax 0.06 m/sec - LV lateral e' Vmax 0.06 m/sec - LV E:e' septal ratio 16.67 ratio - LV E:e' lateral ratio 16.67 ratio - Name Value Normal Range AV Vmax 1.4 m/sec - AV VTI 24.8 cm - AV peak gradient 7.48 mmHg - AV mean gradient 3.47 mmHg - LVOT Vmax 1.2 m/sec - LVOT VTI 23.4 cm - LVOT peak gradient 5.8 mmHg - LVOT mean gradient 2.79 mmHg - Name Value Normal Range TR Vmax 2.9 m/sec - TR peak gradient 34 mmHg - Name Value Normal Range PV Vmax 1 m/sec - PV peak gradient 3.72 mmHg -
[2017-10-04] MEDS: Norepinephrine 16MCG/ML IVPRE* 4,000 MCG/250 ML BAG IV SCH (17:02)
[2017-10-04] MEDS: Propofol* 100 ML IV SCH (17:08)
--- NOTE | 2017-10-04 21:57 | EEG ---
ELECTROENCEPHALOGRAPHY: DATE OF STUDY: 10/04/17 - ROOM #ICU-02 PROCEDURE: Routine EEG. [employer] digital EEG machine utilizing 17 electrodes. CLINICAL PROBLEM: The patient is a 52-year-old female, who has a history of extensive metastatic renal cell carcinoma, who has intermittent symptomatic syncope, who was admitted for acute hypoxic respiratory failure. This EEG was obtained to evaluate for epileptiform abnormalities. The patient was reported to be awake and responding to simple commands. She is at risk for seizures, hence this EEG was ordered to evaluate for epileptiform abnormalities. ORDERING PROVIDER: Adalberto Abdi MD. MEDICATIONS: 1. Vancomycin. 2. Levophed. 3. Propofol. CLINICAL STATE: Encephalopathic. REPORT: The background lacked organization or clearly defined anterior- posterior voltage and frequency gradient. Initially in the beginning of the recording, there was some discernable background with diffuse beta frequencies of approximately 15-20 Hz. In the middle of the recording, there were mixed frequency slowing in the delta and theta range. The frequency was 2-5 Hz. In the middle of the recording, there was emergence of higher amplitude delta slowing that became sharply contoured and took on a triphasic morphology. The patient appeared uncomfortable according to the dictated note by the technologist and propofol was administered. Following that, there was an emergence of higher amplitude triphasic waves with a frequency of 1-2 Hz seen at the end of the recording. The background at that time became irregular and disorganized. There was no distinct evolution or propagation of any epileptiform discharges. Photic stimulation and hyperventilation were not performed during this procedure. Throughout this recording, there were no clear electrographic seizures. CLINICAL IMPRESSION: This is an abnormal EEG due to the presence of diffuse, but reactive slowing with emergence of high amplitude triphasic waves. There were no clear electrographic seizures. These findings are suggestive of a nonspecific moderate diffuse encephalopathy, which can be seen in underlying toxic metabolic disturbance. Clinical correlation is recommended. [id number] #: [id number] [facility]
[2017-10-04] MEDS: fentaNYL* 50 MCG/ML 2 ML VIAL (100 MCG VIAL) IV PRN (23:55)
[2017-10-05] MEDS: Hydrocortisone INJ* 100 MG VIAL IV SCH ×3 (00:10→18:16)
[2017-10-05] MEDS: Chlorhexidine MOUTHWASH 0.12%* 15 ML UDC TOPICAL SCH ×4 (00:10→11:25)
[2017-10-05] MEDS: NS 0.9% 1000 ML* 1,000 ML IV SCH ×2 (01:03→08:30)
[2017-10-05] MEDS: Propofol* 100 ML IV SCH ×2 (01:03→06:27)
[2017-10-05] MEDS: fentaNYL* 50 MCG/ML 2 ML VIAL (100 MCG VIAL) IV PRN ×3 (02:28→09:03)
[2017-10-05 04:10] LABS: ABS Basophils 0 10^3/ul (0-0.2); ABS Eosinophils 0 10^3/ul (0-0.6); ABS Lymphocytes 0.5 10^3/ul (1.0-4.8); ABS Monocytes 0.4 10^3/ul (0-0.8); ABS Neutrophils 9.3 10^3/ul (1.5-7.7); ABS Nucleated RBC 0 10^3/ul; Eosinophil % 0 % (0-6); Hematocrit 22 % (35-47); Hemoglobin 7.4 g/dl (12.0-16.0); Lymphocyte % 4.8 % (25-47); Mean Corpuscular HGB Conc 33 g/dl (31-36); Mean Corpuscular Hemoglobin 29 pg (27-31); Mean Corpuscular Volume 89 fL (80-97); Mean Platelet Volume 7.4 um3 (7.4-10.4); Nucleated Red Blood Cells % 0; Platelet Count 216 10^3/ul (150-450); Red Blood Count 2.51 10^6/ul (4.0-5.4); Red Cell Distribution Width 15 % (10.5-15); White Blood Count 10.3 10^3/ul (3.5-10.8)
[2017-10-05] MEDS: Norepinephrine 16MCG/ML IVPRE* 4,000 MCG/250 ML BAG IV SCH (04:38)
[2017-10-05 04:42] LABS: EGFR Non-African American 109.6 (>60)
[2017-10-05 05:09] LABS: INR 1.01 (0.77-1.02)
[2017-10-05] MEDS: Pantoprazole IV* 40 MG IV SCH (05:55)
--- NOTE | 2017-10-05 07:43 | RAD ---
INDICATION: ET tube placement COMPARISON: September 07, 2017 TECHNIQUE: A portable AP erect view obtained at 2348 hours is submitted. FINDINGS: Bones/Soft Tissues: Endotracheal tube is 3 cm above the vish. Cardiomediastinal: The heart is normal in size. Lungs: There is airspace disease in left lung base. There is mild infiltrative change in right lung base. Pleura: Small bilateral pleural effusions. Other: None IMPRESSION: ENDOTRACHEAL TUBE 3 CM BELOW THE VISH. MILD BIBASILAR AIRSPACE DISEASE WITH SMALL LEFT-SIDED EFFUSION
[2017-10-05] MEDS ORDERED: Furosemide IV* 10 MG/ML VIAL (40 MG) IV SLOW PU ONE (09:22)
[2017-10-05] MEDS ORDERED: Furosemide IV* 10 MG/ML VIAL (40 MG) ONE (09:33)
[2017-10-05 09:46] LABS: Hematocrit 16 % (35-47); Hemoglobin 5.7 g/dl (12.0-16.0); Mean Corpuscular HGB Conc 35 g/dl (31-36); Mean Corpuscular Hemoglobin 32 pg (27-31); Mean Corpuscular Volume 90 fL (80-97); Mean Platelet Volume 7.6 um3 (7.4-10.4); Platelet Count 157 10^3/ul (150-450); Red Blood Count 1.77 10^6/ul (4.0-5.4); Red Cell Distribution Width 15 % (10.5-15); White Blood Count 7.2 10^3/ul (3.5-10.8)
[2017-10-05 09:58] LABS: EGFR Non-African American 210.1 (>60)
--- NOTE | 2017-10-05 10:40 | PN ---
Progress Note - Progress Note Date of Service: 10/05/17 Note: CRITICAL CARE MEDICINE Date: 10/05/17 Time: 930 SUBJECTIVE: Patient seen and examined. family at bedside. PHYSICAL EXAM: Vital Signs: Reviewed. Hr 90s. offlevophed. Neurologic: awake, follows commands. wants ett out. HEENT: pupils equal. Sclera anicteric. Trachea midline. Cardiovascular: S1 S2 distant, no m, Respiratory: few rhonchi bl; meek cpap 12/8 with large vol. 30% Abdomen: Soft, nt. No r/g/r. Extremities: dep thigh edema. warmer Access: piv, ecchymosis at Right groin attempted site in evolution. LABS: Reviewed. IMAGING: Reviewed. MEDICATIONS: Reviewed. 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 PLAN: Neurologic: off propofol this am. egg without sz. Cardiovascular: leveophed off. intravasc vol up a touch and interstial up. attempt dose lasix to promote flow phase but can't overdry. echo fine. Respiratory: meek on cpap. liberate today and avoid rescues other then O2. Has some fluid but should be able to manage as close to optivolemic. Gastrointestinal: po later, ppi today. Renal/Metabolic: gross hematuria improved. keep porter. follow. replete electrolytes later as labs may be false. Infectious Disease: no seen infective burden seen. Hematology: d/w onc this am. poor situation remains. no chemo presently. will look to address palliative options. no transfusion just yet but may still needs some red cells today Endocrine: steroid quick taper Musculoskeletal: oob later Psych/Social: family updated at bedside. Supportive and preventative care as ordered. SUP: ppi VTE prophylaxis: scds alone given dic still Porter catheter given critical illness, monitoring needs for accurate assessment of EDY and KDIGO criteria for critically ill patients and to avoid potential harms of urinary retention, skin breakdown/ulcers. Disposition: ICU Code Status: DNR; will discuss further care plans with pt post liberation Critical Care Time: 45min Whitney Lambert DO
[2017-10-05] MEDS ORDERED: Albuterol 2.5 MG/3 ML NEB.SOL* (0.083%) INH PRN (11:42)
[2017-10-05] MEDS ORDERED: fentaNYL* 50 MCG/ML 2 ML VIAL (100 MCG VIAL) IV SLOW PU PRN (11:44)
[2017-10-05] MEDS ORDERED: Ondansetron INJ* 2 MG/ML VIAL IV PRN (11:44)
[2017-10-05] MEDS ORDERED: Spiriva Inhaler DEVICE* 1 EACH DEVICE SCH (12:00)
[2017-10-05] MEDS: oxyCODONE TAB* 5 MG TAB PO PRN ×2 (14:01→20:46)
[2017-10-05] MEDS ORDERED: Polyethylene Glycol 3350* 17 GM PACKET PO PRN (19:54)
[2017-10-05 21:32] LABS: Hematocrit 23 % (35-47); Hemoglobin 7.7 g/dl (12.0-16.0)
[2017-10-05 21:59] LABS: EGFR Non-African American 105.4 (>60)
[2017-10-06] MEDS ORDERED: Iohexol 300* (CONTRAST) 10 ML SDV IV ONE (03:34)
[2017-10-06] MEDS: oxyCODONE TAB* 5 MG TAB PO PRN ×3 (04:54→12:55)
[2017-10-06] MEDS: Hydrocortisone INJ* 100 MG VIAL IV SCH (07:34)
[2017-10-06] MEDS: Omeprazole CAP* 20 MG PO SCH (07:34)
[2017-10-06 08:26] LABS: Hematocrit 25 % (35-47); Hemoglobin 8.4 g/dl (12.0-16.0); Mean Corpuscular HGB Conc 34 g/dl (31-36); Mean Corpuscular Hemoglobin 29 pg (27-31); Mean Corpuscular Volume 85 fL (80-97); Mean Platelet Volume 7.2 um3 (7.4-10.4); Platelet Count 263 10^3/ul (150-450); Red Blood Count 2.92 10^6/ul (4.0-5.4); Red Cell Distribution Width 15 % (10.5-15)
[2017-10-06 08:35] LABS: INR 0.98 (0.77-1.02)
[2017-10-06] MEDS: fentaNYL* 50 MCG/ML 2 ML VIAL (100 MCG VIAL) IV PRN ×2 (08:43→12:55)
[2017-10-06 08:52] LABS: ABS Basophils 0.1 10^3/ul (0-0.2); ABS Eosinophils 0 10^3/ul (0-0.6); ABS Lymphocytes 1.9 10^3/ul (1.0-4.8); ABS Monocytes 1.9 10^3/ul (0-0.8); ABS Neutrophils 11.2 10^3/ul (1.5-7.7); ABS Nucleated RBC 0 10^3/ul; Eosinophil % 0.2 % (0-6); Lymphocyte % 12.4 % (25-47); Nucleated Red Blood Cells % 0
[2017-10-06 08:56] LABS: EGFR Non-African American 116.5 (>60)
[2017-10-06] MEDS ORDERED: Magnesium Sulfate 2 GM IV* 2 GM/50 ML BAG IVPB ONE (09:12)
[2017-10-06] MEDS ORDERED: Furosemide IV* 10 MG/ML VIAL (40 MG) IV SLOW PU ONE (09:12)
--- NOTE | 2017-10-06 09:24 | RAD ---
INDICATION: Short of breath COMPARISON: Chest x-ray October 04, 2017 TECHNIQUE: An AP portable view obtained at 0900 hours is submitted. FINDINGS: Bones/Soft Tissues: There are no acute bony findings. The endotracheal tube is been removed. There are overlying chest leads Cardiomediastinal: The cardiomediastinal silhouette is normal. A mild diffuse increased interstitial markings suggest mild interstitial congestion Lungs: There is mild bibasilar airspace disease but there is improved aeration particularly on the left. Pleura: Small left-sided effusion. Other: None IMPRESSION: IMPROVED AERATION LEFT LUNG BASE. SUSPECT MILD INTERSTITIAL CONGESTION. SMALL LEFT-SIDED EFFUSION.
[2017-10-06] MEDS: Potassium Chlor TAB* 20 MEQ TAB.ER PO SCH ×2 (09:38→12:57)
[2017-10-06] MEDS: Tiotropium CAP.INH* CAP.INH/18 MCG (USE ORDER SET !) INH SCH (09:58)
[2017-10-06] MEDS ORDERED: Morphine VIAL* 4 MG/ML VIAL (1 ml vial) IV ONE (11:17)
[2017-10-06] MEDS ORDERED: HYDROmorphone INJ* 2 MG/ML CARPUJECT SYRINGE IV SLOW PU ONE (11:27)
[2017-10-06] MEDS ORDERED: HYDROmorphone INJ* 2 MG/ML CARPUJECT SYRINGE ONE (11:29)
[2017-10-06] MEDS: predniSONE TAB* 20 MG PO SCH (11:32)
--- NOTE | 2017-10-06 11:36 | PN ---
Progress Note - Progress Note Date of Service: 10/06/17 Note: CRITICAL CARE MEDICINE Date: 10/05/17 Time: 920 SUBJECTIVE: Patient seen and examined. family at bedside. PHYSICAL EXAM: Vital Signs: Reviewed. Hr 90s. bp up some Neurologic: awake, communicating. NAD HEENT: pupils equal. Sclera anicteric. Trachea midline. Cardiovascular: S1 S2 distant, no m Respiratory: inc rhonchi bl with mild wheeze; deep insp phase Abdomen: Soft, nt. No r/g/r. Extremities: mild dep thigh edema. warm Access: piv, ecchymosis at Right groin in evolution. LABS: Reviewed. IMAGING: Reviewed. MEDICATIONS: Reviewed. ASSESSMENT: 52 F Extensive metastatic RCC with extension into right renal vein, IVC Mets to right lung, left renal and cerebral. 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 Needs to mobilize further volume without ivc vol deficit compromise. lasix given. Respiratory: meek on O2, and sats ok but required deep breathing with effusions and some space lost with pe burdens and lung disease. Inc neb use, copd adjunctives and can leave on short course steroids to help fend off bronchospasm. Has effusions and some fluid; mobilize. is. Gastrointestinal: po inc as tolerating. outpt ppi. Renal/Metabolic: hematuria improving but keep porter for now.replete electrolytes as needed. Infectious Disease: no seen infective burden. wbc up post steroids. Hematology: onc follow and consideration of pt needs/desires. ask palliative to address potential options there. transfusion total of 2 ffp and 2 prbcs since admit but stabilized out now and holding off. still no anticoag presently as she will remain at too high risk for gross uncontrollable hematuria. not ivcf candidate either. Endocrine: steroid taper Musculoskeletal: oob; pt if needed Psych/Social: pt and family updated at bedside. Supportive and preventative care as ordered. SUP: on ppi VTE prophylaxis: scds alone presently Disposition: ICU today but almost ready for floor when plans sorted Code Status: DNR currently Critical Care Time: 35min Whitney Lambert DO
[2017-10-06] MEDS: Morphine INJ* 10 MG/ML 1 ML CARPUJECT IV PRN (12:02)
[2017-10-06] MEDS: Gabapentin CAP(*) 300 MG PO SCH ×2 (12:55→21:40)
[2017-10-06] MEDS: LORazepam TAB(*) 1 MG PO PRN (13:09)
--- NOTE | 2017-10-06 13:21 | PN ---
Progress Note - Progress Note Date of Service: 10/06/17 Note: CRITICAL CARE MEDICINE Date: 10/06/17 Time: 1230 pts mother and brother at bedside. Hr 110-120s. bp up still. RR up. mild delirium, inc anxiety sec to c/o porter pressure post lasix. Explained how we were trying to keep porter in order to ensure no further gross bleeding, especially if clot potentials. She remained in discomfort and therefore best to remove porter and follow. We discussed her overall condition and cancer again. We tried to discuss with pt about potential DNI status but she wasn't ready to commit one way or the other at this time. She states she understands and understands she will someday from this cancer but not committing to decision. Mom present also trying to understand patient's wishes. They understood that her breathing pattern has not been favorable today and may need to escalate care. Given lasix already but not just lung water. Concern for ongoing VTE disease still likely. We discussed the risks and benefits of treatment with them all again expressing understanding that we are in a more supportive position as we cannot fix underlying ailment and risk of inducing further bleeding does not allow for initiation of therapies to this affect, but also therefore leaves her at great risk for from thromboembolic disease. Again, pt expressed understanding and has capacity but starting to seem more deliriuos as well and now post narcotics too (al beit more of chronic regimen). Explained she may still once again fail to recover and worsen and we should lean towards erroring on the side of comfort rather then aggressive life support, ie ventilator. Throughout this am she didn't even want to do nebulizer and she is at least saying she's willing to re-try that. Still needs close ICU care and support but overall prognosis still dismal (family understands this). Still tolerating of NC but if HR and RR (although they have varied quite a bit) stay up would consider early HFO2 before sat decline. Disposition: ICU today Code Status: DNR Critical Care Time: 20min Whitney Lambert DO
[2017-10-06] MEDS: Mometasone/Formoter 200/5 MDI INH SCH ×2 (19:34→20:33)
[2017-10-06] MEDS: oxyCODONE SR TAB(*) 10 MG TAB.SR PO SCH (21:40)
[2017-10-07] MEDS: LORazepam TAB(*) 1 MG PO PRN (01:19)
[2017-10-07 06:04] LABS: Hematocrit 24 % (35-47); Mean Corpuscular HGB Conc 34 g/dl (31-36); Mean Corpuscular Hemoglobin 29 pg (27-31); Mean Corpuscular Volume 86 fL (80-97); Mean Platelet Volume 7.3 um3 (7.4-10.4); Platelet Count 262 10^3/ul (150-450); Red Blood Count 2.74 10^6/ul (4.0-5.4); Red Cell Distribution Width 15 % (10.5-15); White Blood Count 17.4 10^3/ul (3.5-10.8)
[2017-10-07] MEDS: Omeprazole CAP* 20 MG PO SCH (06:09)
[2017-10-07] MEDS: Morphine INJ* 10 MG/ML 1 ML CARPUJECT IV PRN (06:13)
[2017-10-07 06:19] LABS: EGFR Non-African American 99.6 (>60)
[2017-10-07] MEDS ORDERED: Piperacillin/Tazobac ADVAN(*) 3.375 GM in NS 0.9% 100 ML* 100 ML IVPB ONE (06:30)
[2017-10-07] MEDS ORDERED: Zosyn per Pharmacy* NOTE FOLLOW UP SCH (07:00)
[2017-10-07 07:26] LABS: Monocytes % 5 % (0-7)
[2017-10-07] MEDS ORDERED: Magnesium Sulfate 2 GM IV* 2 GM/50 ML BAG IVPB ONE (07:29)
[2017-10-07] MEDS ORDERED: Potassium EFFERVESCENT TAB* 25 MEQ TAB.EFF PO ONE (07:29)
--- NOTE | 2017-10-07 07:39 | RAD ---
INDICATION: Fever COMPARISON: October 06, 2017 TECHNIQUE: An AP portable view obtained at 0615 hours is submitted. FINDINGS: Bones/Soft Tissues: There are no acute bony findings. Cardiomediastinal: The heart is normal in size. The central pulmonary vessels and interstitium are prominent. Findings are consistent with vascular congestion. Lungs: Bibasilar infiltrative change. Pleura: Bilateral pleural effusions. Other: None IMPRESSION: INTERSTITIAL CONGESTION WITH MILD WORSENING. INCREASE IN SIZE OF BILATERAL EFFUSIONS.
[2017-10-07] MEDS: Mometasone/Formoter 200/5 MDI INH SCH ×2 (08:00→19:25)
[2017-10-07] MEDS: Tiotropium CAP.INH* CAP.INH/18 MCG (USE ORDER SET !) INH SCH (08:00)
[2017-10-07] MEDS: oxyCODONE SR TAB(*) 10 MG TAB.SR PO SCH ×2 (08:07→20:24)
[2017-10-07] MEDS: Gabapentin CAP(*) 300 MG PO SCH ×3 (08:07→20:24)
[2017-10-07] MEDS: predniSONE TAB* 20 MG PO SCH (08:08)
[2017-10-07] MEDS: fentaNYL* 50 MCG/ML 2 ML VIAL (100 MCG VIAL) IV PRN ×2 (09:20→21:38)
[2017-10-07] MEDS ORDERED: Furosemide IV* 10 MG/ML VIAL (40 MG) IV SLOW PU ONE (09:22)
[2017-10-07] MEDS: ZOSYN 3.375 GM Q8H per EXTENDED INFUSION IVPB SCH ×4 (11:07→19:38)
--- NOTE | 2017-10-07 11:31 | PN ---
Progress Note - Progress Note Date of Service: 10/07/17 Note: CRITICAL CARE MEDICINE Date: 10/07/17 Time: 900 SUBJECTIVE: Patient seen and examined. no family at bedside. PHYSICAL EXAM: Vital Signs: Reviewed. Hr 90s. bp ok Neurologic: awake, communicating. NAD. mild delirium vs baseline personality HEENT: pupils equal. Sclera anicteric. Trachea midline. Cardiovascular: S1 S2 distant, no m Respiratory: less rhonchi bl without wheeze but with dec bs bases. R sided pleuritic base pain Abdomen: Soft, nt. No r/g/r. Extremities: dep thigh edema. ecchymosis in evolution. coolish Access: piv LABS: Reviewed. IMAGING: Reviewed. MEDICATIONS: Reviewed. ASSESSMENT: 52 F Extensive metastatic RCC with extension into right renal vein, IVC Mets to right lung, left renal and cerebral. 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 Tried to discuss with her other offerings of pain help. Cardiovascular: Hemodynamically ok. lasix again today. Respiratory: meek on low dose O2, with dep ins at times given bl effusions. is. oob. pleuritic pain associated with pe and or effusion. not seeing overt infacrtion. underlying mod copd, keep adjunctives. Gastrointestinal: po inc today. outpt ppi. Renal/Metabolic: hematuria improved. porter out improved her sx. Infectious Disease: potential for infective burden however wbc up likely post steroids and isolated fever more likely from ca, pe, and or atelectasis. But she has been cultured and with her high morbidity and mortality will keep abx until cx return or clinically enough to change. Hematology: onc following. counts ok. no anticoag. Lungs and overall deconditioning, and with ongoing acute on chronic pains, would favor a more aggressive palliative approach favoring pain and sx control over side affect potentials from xrt and chemo palliation. If perhaps she could consider starting with hospice, which can often improve your functional condition to a point she proves well enough and desire to meek xrt and chemo palliation could be a potential graduation decision. Tried to d/w pt but she remains unperceptive to our discussions although she has capacity but education information which is being offered is avoided, but she does agree she would then prefer to have her brother present to help make decisions with her and become her new proxy. Endocrine: steroid taper Musculoskeletal: oob; pt prn Psych/Social: will look to update family. Supportive and preventative care as ordered. SUP: on ppi VTE prophylaxis: scds still Disposition: ICU required still Code Status: DNR Critical Care Time: 35min Whitney Lambert DO
[2017-10-07] MEDS: oxyCODONE TAB* 5 MG TAB PO PRN (12:43)
[2017-10-08] MEDS: ZOSYN 3.375 GM Q8H per EXTENDED INFUSION IVPB SCH ×4 (03:17→13:09)
[2017-10-08] MEDS: fentaNYL* 50 MCG/ML 2 ML VIAL (100 MCG VIAL) IV PRN ×2 (03:26→07:59)
[2017-10-08] MEDS: Omeprazole CAP* 20 MG PO SCH (05:34)
[2017-10-08] MEDS: Morphine INJ* 10 MG/ML 1 ML CARPUJECT IV PRN (05:34)
[2017-10-08 05:41] LABS: Hematocrit 22 % (35-47); Hemoglobin 7.2 g/dl (12.0-16.0); Mean Corpuscular HGB Conc 33 g/dl (31-36); Mean Corpuscular Hemoglobin 29 pg (27-31); Mean Corpuscular Volume 87 fL (80-97); Mean Platelet Volume 7.5 um3 (7.4-10.4); Platelet Count 288 10^3/ul (150-450); Red Cell Distribution Width 15 % (10.5-15); White Blood Count 16.4 10^3/ul (3.5-10.8)
[2017-10-08 05:43] LABS: ABS Basophils 0 10^3/ul (0-0.2); ABS Eosinophils 0 10^3/ul (0-0.6); ABS Lymphocytes 1.6 10^3/ul (1.0-4.8); ABS Monocytes 1.8 10^3/ul (0-0.8); ABS Nucleated RBC 0 10^3/ul; Eosinophil % 0.1 % (0-6); Lymphocyte % 9.6 % (25-47); Nucleated Red Blood Cells % 0
[2017-10-08 05:52] LABS: EGFR Non-African American 97.8 (>60)
[2017-10-08] MEDS: predniSONE TAB* 20 MG PO SCH (07:59)
[2017-10-08] MEDS: oxyCODONE SR TAB(*) 10 MG TAB.SR PO SCH ×2 (07:59→20:49)
[2017-10-08] MEDS: Gabapentin CAP(*) 300 MG PO SCH ×3 (07:59→20:49)
[2017-10-08] MEDS: Tiotropium CAP.INH* CAP.INH/18 MCG (USE ORDER SET !) INH SCH (08:55)
[2017-10-08] MEDS: Mometasone/Formoter 200/5 MDI INH SCH ×2 (08:56→22:49)
[2017-10-08] MEDS ORDERED: Furosemide IV* 10 MG/ML VIAL (40 MG) IV SLOW PU ONE (09:29)
[2017-10-08] MEDS: Potassium & Sodium Phos 250MG* = 1 PACKET PO SCH ×2 (10:08→20:48)
[2017-10-08] MEDS: Potassium EFFERVESCENT TAB* 25 MEQ TAB.EFF PO SCH ×2 (11:07→21:36)
[2017-10-08] MEDS ORDERED: Morphine INJ* 10 MG/ML 1 ML CARPUJECT IV PRN (11:12)
[2017-10-08] MEDS ORDERED: oxyCODONE SR TAB(*) 10 MG TAB.SR PO ONE (11:12)
--- NOTE | 2017-10-08 11:23 | PN ---
Progress Note - Progress Note Date of Service: 10/08/17 Note: CRITICAL CARE MEDICINE Date: 10/08/17 Time: 930 SUBJECTIVE: Patient seen and examined. brother at bedside. PHYSICAL EXAM: Vital Signs: Reviewed. Hr 90s to 100s. bp ok. 4-6L O2. Neurologic: awake, communicating. better then yesterday from delirium. HEENT: pupils equal. Sclera anicteric. Trachea midline. Cardiovascular: S1 S2 distant, no m Respiratory: less rhonchi. dec bs bases. Abdomen: Soft, nt. No r/g/r. Extremities: dep thigh edema. ecchymosis in evolution. Access: piv LABS: Reviewed. IMAGING: Reviewed. MEDICATIONS: Reviewed. ASSESSMENT: 52 F Extensive metastatic RCC with extension into right renal vein, IVC Mets to right lung, left renal and cerebral. 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 she is showing us that. She is getting out of bed. She wants to try walking with walker. Still with poor blood counts and drift. Hematuria more microscopci but remaining. Still requiring O2 with her lung disease and thromboembolic ailments. IVC burden and metastatic burden will not allow her to thrive. Metabolic demands will remain. This has been discussed with her several times and again today with her brother present, to whom she now allows to serve as her proxy. She has capacity but difficulty with the complex reality. Family is greatly supportive and all on same page. We move forwards with medcial supports as we are doing this weekend. Can increase pain regimen to remain as comfortable, yet as functional as she can for now. Discussions of hospice to ensure. Hold off on any chemo or xrt for now and see if come begining of week she would be able to transition from hospital. Can have posture and goal of graduating from hospice but would be best served by starting this process. If she can stabilize herself and functional capacity then they can always re-think oncological offers if prudent and available. Supportive and preventative care as ordered. SUP: on ppi VTE prophylaxis: can avoid chemical anticoag Disposition: ok for floor. no need for return to icu Code Status: DNR/DNI. Critical Care Time: 35min Whitney Lambert DO
[2017-10-08] MEDS: Acetaminophen TAB* 325 MG PO PRN (15:02)
[2017-10-08] MEDS: LORazepam TAB(*) 1 MG PO PRN (20:54)
[2017-10-09] MEDS: oxyCODONE TAB* 5 MG TAB PO PRN ×3 (03:09→23:55)
[2017-10-09] MEDS: Omeprazole CAP* 20 MG PO SCH (06:17)
[2017-10-09 08:11] LABS: INR 1.03 (0.77-1.02)
[2017-10-09 08:12] LABS: Hematocrit 22 % (35-47); Hemoglobin 7.2 g/dl (12.0-16.0); Mean Corpuscular HGB Conc 32 g/dl (31-36); Mean Corpuscular Hemoglobin 28 pg (27-31); Mean Corpuscular Volume 88 fL (80-97); Mean Platelet Volume 7.5 um3 (7.4-10.4); Platelet Count 332 10^3/ul (150-450); Red Blood Count 2.55 10^6/ul (4.0-5.4); Red Cell Distribution Width 15 % (10.5-15); White Blood Count 13.7 10^3/ul (3.5-10.8)
[2017-10-09 08:28] LABS: EGFR Non-African American 124.3 (>60)
[2017-10-09] MEDS: Gabapentin CAP(*) 300 MG PO SCH ×3 (08:29→19:29)
[2017-10-09] MEDS: oxyCODONE SR TAB(*) 10 MG TAB.SR PO SCH ×2 (08:30→19:28)
[2017-10-09] MEDS: Acetaminophen TAB* 325 MG PO PRN ×2 (08:32→19:28)
[2017-10-09] MEDS: Potassium & Sodium Phos 250MG* = 1 PACKET PO SCH (08:33)
[2017-10-09] MEDS: Potassium EFFERVESCENT TAB* 25 MEQ TAB.EFF PO SCH (08:34)
[2017-10-09] MEDS: Tiotropium CAP.INH* CAP.INH/18 MCG (USE ORDER SET !) INH SCH (09:09)
[2017-10-09] MEDS: Mometasone/Formoter 200/5 MDI INH SCH ×2 (09:10→19:53)
[2017-10-10] MEDS: oxyCODONE TAB* 5 MG TAB PO PRN ×4 (03:45→15:16)
[2017-10-10] MEDS: Omeprazole CAP* 20 MG PO SCH (06:17)
[2017-10-10] MEDS: Gabapentin CAP(*) 300 MG PO SCH ×2 (07:32→13:08)
[2017-10-10] MEDS: Acetaminophen TAB* 325 MG PO PRN (07:32)
[2017-10-10] MEDS: oxyCODONE SR TAB(*) 10 MG TAB.SR PO SCH (07:32)
[2017-10-10] MEDS: Mometasone/Formoter 200/5 MDI INH SCH (09:30)
[2017-10-10] MEDS: Tiotropium CAP.INH* CAP.INH/18 MCG (USE ORDER SET !) INH SCH (09:30)
[2017-10-10] MEDS ORDERED: Polyethylene Glycol 3350* 17 GM PACKET PO SCH (13:00)
[2017-10-10 16:55] VITALS: BP 97/55
--- NOTE | 2017-10-11 00:11 | DS ---
CC: Dr. Locke; Dr. Park * SUMMARY: DATE OF ADMISSION: 10/04/17 DATE OF : 10/10/17 TIME OF : 1630. CAUSE OF : Likely massive pulmonary embolus. 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 HOSPITALIZATION COURSE: Mrs. Kaci Gerardo was a 52-year-old female who presented to the hospital on 10/04/17 after a syncopal episode. She suffered from respiratory failure, was intubated. She had a history of recently diagnosed metastatic renal cell carcinoma and was noted to have an extension into the right renal vein and inferior vena cava with metastases also to the right lung and brain. The patient was noted to have gross hematuria and was not a candidate for anticoagulation. Due to her diffuse involvement of veins from renal cell carcinoma, she was not a candidate for filter placement to prevent further embolic episodes. The patient was eventually liberated from ventilator and placed on medical floor where extensive discussion was carried on with the family in regards to the patient's treatment. She was not a candidate for chemotherapy and hospice was asked to see the patient soon. The patient was made do not resuscitate during her hospital stay. On the day of , she felt rather well and saw her brother who was her healthcare proxy in the morning. In the afternoon, she stood up, collapsed. She was found to be in junctional rhythm with a heart rate of 20 and PEA. Due to her do not resuscitate order, resuscitation was not attempted. The patient subsequently and was pronounced at 4:30 p.m. on 10/10/17. At pronouncement, she was found to be unresponsive to all stimuli with skin cool and pale. Pupils were fixed and nonreactive to light. There was no spontaneous breathing or heart rate noted on evaluation. The patient's healthcare proxy, her brother Peng, was notified about the patient's and declined an autopsy. The patient's boyfriend, Luis F, was also notified. The patient's attending, Dr. Locke, was informed throughout the process. TIME SPENT: Approximately 45 minutes were spent in the patient's care. [id number]/[facility] #: [id number] MTDD
== END 2017-10-10 16:30 | disposition expired | DRG 661 ==
LOC: ED 01:36 → ICU 04:25 → MED 10-08 14:06
PROVIDERS: ADMIT Hospitalist; ATTEND Internal Medicine Hematology & Oncology
PROC: 30233N1 Transfusion of Nonautologous Red Blood Cells into Peripheral Vein, Percutaneous Approach (ICD-10-PCS; principal; 2017-10-04)
PROC: 0BJ08ZZ Inspection of Tracheobronchial Tree, Via Natural or Artificial Opening Endoscopic (ICD-10-PCS; 2017-10-04)
PROC: 0BH17EZ Insertion of Endotracheal Airway into Trachea, Via Natural or Artificial Opening (ICD-10-PCS; 2017-10-04)
PROC: 5A1945Z Respiratory Ventilation, 24-96 Consecutive Hours (ICD-10-PCS; 2017-10-04)
PROC: 4A10X4Z Monitoring of Central Nervous Electrical Activity, External Approach (ICD-10-PCS; 2017-10-04)
PROC: 02HV33Z Insertion of Infusion Device into Superior Vena Cava, Percutaneous Approach (ICD-10-PCS; 2017-10-04)
DX: D65 Disseminated intravascular coagulation [defibrination syndrome] (principal); J96.01 Acute respiratory failure with hypoxia; I26.99 Other pulmonary embolism without acute cor pulmonale; C79.31 Secondary malignant neoplasm of brain; C79.89 Secondary malignant neoplasm of other specified sites; C78.01 Secondary malignant neoplasm of right lung; C64.1 Malignant neoplasm of right kidney, except renal pelvis; G61.0 Guillain-Barre syndrome; G93.1 Anoxic brain damage, not elsewhere classified; D62 Acute posthemorrhagic anemia; G89.29 Other chronic pain; M54.9 Dorsalgia, unspecified; J45.909 Unspecified asthma, uncomplicated; K21.9 Gastro-esophageal reflux disease without esophagitis; M19.90 Unspecified osteoarthritis, unspecified site; M41.9 Scoliosis, unspecified; R31.0 Gross hematuria; Z96.641 Presence of right artificial hip joint; F17.210 Nicotine dependence, cigarettes, uncomplicated; K59.00 Constipation, unspecified; D72.829 Elevated white blood cell count, unspecified; Z98.51 Tubal ligation status; R57.0 Cardiogenic shock; Z66 Do not resuscitate; R41.0 Disorientation, unspecified
CPT/HCPCS: 36415; 70450; 71045; 71046; 71275; 74174; 80048; 80053; 80320; 80329; 81003; 82140; 82550; 82803; 83605; 83615; 83735; 83880; 84100; 84443; 84484; 85014; 85018; 85025; 85027; 85060; 85379; 85384; 85610; 85730; 86078; 86850; 86900; 86901; 86922; 86927; 87040; 87070; 87077; 87086; 87205; 87641; 93005; 93306; 94002; 94003; 94640; 94760; 95819; 99231; 99232; 99233; 99285; A9270-GY; G0480; J0330; J1170; J1720; J1940; J2060; J2270; J2543; J2704; J3010; J3370; J3475; J7512; P9017; P9040; Q9967